=== PATIENT | male | born 1940 | race Caucasian/White ===

== ENCOUNTER → 2016-08-14 | Outpatient (CLI) | payer MEDICARE ==
[~2016-08-14] MED LIST: ALLO300T2 PO; ASPI1TAB69 PO; GLUC500T4 PO; LEVA500T PO; LOVA40TA PO; LYRI75CA PO; METO50TA PO; VENTAER INH; ZOFR4TAB3 SL
[2016-08-14 09:46] LABS: BLOOD GAS BASE EXCESS -1.5 mmol/L (-2-2); BLOOD GAS CARBOXYHEMOGLOBIN 1.3 % (0-4); BLOOD GAS HCO3 23 mmol/L (22-26); BLOOD GAS METHEMOGLOBIN 1.1 % (0-2); BLOOD GAS O2 HGB SATURATION 92 % (90-100); BLOOD GAS OXYGEN CONTENT 16.3 Vol % (12.0-20.0); BLOOD GAS PCO2 36 mmHg (38-42); BLOOD GAS PO2 73 mmHg (61-120); BLOOD GAS TOTAL HGB 12.6 G/DL (12.0-16.0); CRITICAL VALUE NO; DRAW SITE RT RADIAL; LITER FLOW 21 L/M; NUMBER OF ARTERIAL PUNCTURES 1; STAT NO; TEMP CORR TO 98.6; ULNAR PULSE PRESENT
--- NOTE | 2016-08-17 10:56 | RSPPFT ---
DATE OF PROCEDURE: 08/14/16 COMMENTS: Spirometry with FVC of 3.0 predicted 5.1, FEV1 of 2.5 predicted 3.3, FEV1/FVC ratio 83% predicted 65%. Lung volumes show a mild decrease with TLC at 5.9 predicted 8.1. DLCO is within the predicted range. IMPRESSION: On the basis of the above, patient has a mild restrictive lung defect.
== END ==
LOC: HRSP 08:54
PROVIDERS: ATTEND Internal Medicine Pulmonary Disease
DX: R05 Cough (principal)
CPT/HCPCS: 36600; 82805; 94060; 94620; 94726; 94729

== ENCOUNTER 2017-04-16 14:29 | Emergency (ER) | payer MEDICARE ==
[~2017-04-16] VITALS: Ht 193 cm; Wt 137.1 kg
[2017-04-16 14:32] VITALS: BP 121/89; PULSE 71; RESP 15; TEMP 98.1; O2SAT 93
[2017-04-16] MEDS ORDERED: LIDOCAINE HCL 1% 50 ML VIAL INFIL ONE (14:45)
[2017-04-16] MEDS ORDERED: TETANUS/DIPHTHERIA TOXOID ADULT 0.5 ML VIAL IM ONE (14:45)
[2017-04-16] MEDS ORDERED: ASPI81CH CHEW (14:54)
--- NOTE | 2017-04-16 15:11 | PD ---
HPI Chief Complaint: Fall Time Seen by Provider: 14:41 Travel History International Travel<30 days: No Contact w/Intl Traveler<30days: No Traveled to known affect area: No History of Present Illness HPI 76-year-old male that presents to the ED for evaluation of head injury. Patient fell onto concrete today. Patient was putting shutters when he lost his balance and fell backwards. Patient did not lose consciousness. Patient complains of no pain other than to the head that is 2 out of 10. He does have a laceration to the back of the head. Takes no blood thinners. No nausea or vomiting. No back pain or neck pain. No arm pain or leg pain. Patient states that his last tetanus was about 8 years ago. No fevers chills or sweats. Other medical issues. PFSH Past Medical History Hx Anticoagulant Therapy: No Arthritis: Yes Autoimmune Disease: No Cancer: No Cardiovascular Problems: Yes High Cholesterol: Yes Diminished Hearing: Yes ([place] BOTH EARS) Endocrine: Yes (10 OR 11 YEARS OLD) Gastrointestinal Disorders: No Genitourinary: No Hypertension: Yes Immune Disorder: No Implanted Vascular Access Dvce: No Neurologic: No Psychiatric: No Reproductive: No Respiratory: Yes (HX BRONCHITIS) Immunizations Current: Yes Pneumonia: Yes Thyroid Disease: Yes Tetanus Vaccination: Unknown Influenza Vaccination: No ?: Not Past Surgical History Abdominal Surgery: Yes (APENDIX REMOVAL AT 13 YEARS OLD) Other Surgery: Yes Social History Alcohol Use: Yes (2-3 BEER A WEEK) Tobacco Use: No (QUIT ) Substance Use: No Allergies-Medications (Allergen,Severity, Reaction): Coded Allergies: No Known Allergies (Verified , 04/16/17) Reported Meds & Prescriptions Reported Meds & Active Scripts Active Reported Aspirin 81 Mg Chew 81 Mg CHEW DAILY Metoprolol Tartrate 50 Mg Tab 50 Mg PO BID Lyrica (Pregabalin) 75 Mg Cap 75 Mg PO DAILY Glucosamine-Chondroitin 500-400 Mg Tab 1 Tab PO DAILY Lovastatin 40 Mg Tab 40 Mg PO DAILY Allopurinol 300 Mg Tab 300 Mg PO DAILY Review of Systems Except as stated in HPI: all other systems reviewed are Neg Physical Exam Narrative GENERAL: SKIN: Warm and dry. Patient has a superficial 5 cm laceration to the left temporal head. HEAD: Atraumatic. Normocephalic. EYES: Pupils equal and round. No scleral icterus. No injection or drainage. ENT: No nasal bleeding or discharge. Mucous membranes pink and moist. Tongue is midline. No uvula deviation. NECK: Trachea midline. No JVD. CARDIOVASCULAR: Regular rate and rhythm. RESPIRATORY: No accessory muscle use. Clear to auscultation. Breath sounds equal bilaterally. GASTROINTESTINAL: Abdomen soft, non-tender, nondistended. Hepatic and splenic margins not palpable. MUSCULOSKELETAL: Extremities without clubbing, cyanosis, or edema. No obvious deformities. Full range of motion of the upper and lower extremities bilaterally. 2+ pulses bilaterally. NEUROLOGICAL: Awake and alert. No obvious cranial nerve deficits. Motor grossly within normal limits. Five out of 5 muscle strength in the arms and legs. Normal speech. PSYCHIATRIC: Appropriate mood and affect; insight and judgment normal. Data Data Last Documented VS Vital Signs Date Time Temp Pulse Resp B/P (MAP) Pulse Ox O2 Delivery O2 Flow Rate FiO2 04/16/17 14:32 98.1 71 15 121/89 (100) [address] Brain W/O Iv Contrast(Rout) (04/16/17 ) Wound Care (04/16/17 14:38) Lidocaine 1% Inj (50 Ml) (Xylocaine 1% I (04/16/17 14:45) Tetanus/Diphtheria Tox Adult (Tetanus/Di (04/16/17 14:45) MDM Medical Decision Making Medical Screen Exam Complete: Yes Emergency Medical Condition: Yes Medical Record Reviewed: Yes Interpretation(s) CT negative Differential Diagnosis Laceration versus head injury versus closed head injury versus ICH Narrative Course 76-year-old male that presents to the ED for evaluation of head injury. Patient was properly examined and was found to have signs and symptoms consistent with appears to be a laceration and head injury. CT was ordered. CT was negative for any intracranial injury. I do recommend stapling. Patient agrees with this plan. Please refer to her procedure note. Patient was told to get tello removed in 7 days. Told to follow up with PCP. Given tetanus booster. See ED worsening symptoms. Procedures Procedure Narrative LACERATION LOCATION: Right temporal head LENGTH: 5 cm NUMBER OF STITCHES/TELLO: 10 tello REPAIR: The area of the laceration was prepped with Betadine and sterilely draped. The laceration was infiltrated with 1% Xylocaine. The wound was copiously irrigated and explored without evidence of foreign body, tendon injury or neurovascular injury. The wound was closed using sterile stapler. This was a 1 layer repair. A sterile dressing was applied. The patient was advised to keep the dressing clean and dry. Patient tolerated the procedure well. Diagnosis Primary Impression: Closed head injury Qualified Codes: S09.90XA - Unspecified injury of head, initial encounter Additional Impression: Laceration of head Qualified Codes: S01.411A - Laceration without foreign body of right cheek and temporomandibular area, initial encounter Patient Instructions: General Instructions Additional Instructions: Motrin or Tylenol for pain. See ED worsening symptoms. Get tello removed in 7 days. Follow with PCP. Med/Other Pt SpecificInfo: No Change to Meds, Wound Care Disposition: 01 DISCHARGE HOME Condition: Stable Harish Joyce Apr 16, 2017 15:11
--- NOTE | 2017-04-16 15:44 | RADRPT ---
EXAM DATE/TIME: 04/16/2017 14:59 [facility] COMPARISON: CT BRAIN W/O CONTRAST, July 04, 2016, 16:30. INDICATIONS : Trauma. Fall. Right posterior head laceration. RADIATION DOSE: 64.30 CTDIvol (mGy) MEDICAL HISTORY : Hypertension. Cardiovascular disease SURGICAL HISTORY : Appendectomy. ENCOUNTER: Initial ACUITY: 1 day PAIN SCALE: 2/10 LOCATION: Right cranial TECHNIQUE: Multiple contiguous axial images were obtained of the head. Using automated exposure control and adj ustment of the mA and/or kV according to patient size, radiation dose was kept as low as reasonably a chievable to obtain optimal diagnostic quality images. DICOM format image data is available electro nically for review and comparison. FINDINGS: There is no evidence for intracranial hemorrhage, mass effect, mass lesions, or edema. The visualize d bony structures appear intact. Slight degree of brain atrophy is seen. Slight periventricular whit e matter changes are seen nonspecific mostly consistent with chronic small vessel ischemic changes. There are no signs of acute infarction for technique. 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 CONCLUSION: Slight atrophic and small vessel ischemic changes without any evidence for acute hemorrhage or mass effect. Sveta Boss MD on April 16, 2017 at 15:40 Board Certified Radiologist. This report was verified electronically.
== END 2017-04-16 16:11 | disposition home or self-care (01) ==
LOC: PHEFT 14:29
DX: S09.90XA Unspecified injury of head, initial encounter (principal); S01.411A Laceration without foreign body of right cheek and temporomandibular area, initial encounter; W18.30XA Fall on same level, unspecified, initial encounter; Y93.E9 Activity, other interior property and clothing maintenance; Y92.009 Unspecified place in unspecified non-institutional (private) residence as the place of occurrence of the external cause; Z23 Encounter for immunization
CPT/HCPCS: 12002; 70450; 90471; 90714

== ENCOUNTER → 2017-08-24 | Outpatient (CLI) | payer MEDICARE ==
[~2017-08-24] MED LIST changes: +ASPI-516 CHEW; -ASPI1TAB69 PO; -LEVA500T PO; -VENTAER INH; -ZOFR4TAB3 SL
--- NOTE | 2017-08-26 09:35 | RSPPFT ---
DATE OF PROCEDURE: 08/24/17 COMMENTS: Spirometry shows FVC of 3.3 at 63% of predicted, FEV1 of 2.5 at 62%, FEV1/FVC ratio is normal. Flow is decreased at FEF 25, FEF 50, FEF 75 and FEF 25-75. There is no response after bronchodilator treatment. Flow volume loop indicates terminal airways obstruction. Lung volumes show Residual volume is normal. TLC is decreased. Diffusion capacity is normal. IMPRESSION: 1. Mild small airways obstructive lung disease. 2. No response after bronchodilator treatment. 3. Normal lung volumes. 4. Normal diffusion capacity.
== END ==
LOC: HRSP 08:49
PROVIDERS: ATTEND Specialist
DX: J44.9 Chronic obstructive pulmonary disease, unspecified (principal)
CPT/HCPCS: 36600; 82805; 94060; 94726; 94729

== ENCOUNTER 2018-04-25 00:59 | Observation (INO) ==
[2018-04-25 01:44] LABS: Baso # (Auto) 0.1 th/mm3 (0.0-0.2); Baso % (Auto) 1.1 % (0.0-2.0); Eos # (Auto) 0.2 th/mm3 (0.0-0.4); Eos % (Auto) 3.8 % (0.0-4.0); Hematocrit 41.3 % (39.0-51.0); Hemoglobin 13.6 gm/dL (13.0-17.0); Lymph # (Auto) 2.2 th/mm3 (1.0-4.8); Lymph % (Auto) 33.7 % (9.0-44.0); Mean Corpuscular Hemoglobin 29.9 pg (27.0-34.0); Mean Corpuscular Volume 90.4 fL (80.0-100.0); Mean Platelet Volume 7.4 fL (7.0-11.0); Mono # (Auto) 0.4 th/mm3 (0.0-0.9); Mono % (Auto) 6.1 % (0.0-8.0); Neut # (Auto) 3.6 th/mm3 (1.8-7.7); Neut % (Auto) 55.3 % (16.0-70.0); Platelet Count 238 th/mm3 (150-450); Red Blood Count 4.57 mil/mm3 (4.50-5.90); Red Cell Distribution Width 14.4 % (11.6-17.2); White Blood Count 6.5 th/mm3 (4.0-11.0)
--- NOTE | 2018-04-25 01:50 | XR ---
EXAM DATE: 04/25/2018 1:46 AM EDT AGE/SEX: 77 years / Male INDICATIONS: Shortness of breath. CLINICAL DATA: This is the patient's initial encounter. Patient reports that signs and symptoms have been present for 1 day and indicates a pain score of 0/10. MEDICAL/SURGICAL HISTORY: None. None. COMPARISON: [facility], CHEST SINGLE AP, 07/16/2016. . FINDINGS: A single AP view of the chest demonstrates the lungs to be symmetrically aerated without evidence of mass, infiltrate or effusion. The cardiomediastinal contours are unremarkable. Osseous structures a re intact. CONCLUSION: Stable chest appearance with no definite acute disease. Electronically signed by: Edison Mccormick MD 04/25/2018 1:48 AM EDT
[2018-04-25 02:01] LABS: Alanine Aminotransferase 33 U/L (12-78); Albumin 3.7 g/dL (3.4-5.0); Anion Gap 10 meq/L (5-15); Aspartate Aminotransferase 27 U/L (15-37); Blood Urea Nitrogen 19 mg/dL (7-18); Calcium 9.1 mg/dL (8.5-10.1); Chloride 104 meq/L (98-107); Glomerular Filtration Rate 68 mL/min (>89); Glucose,Random 111 mg/dL (74-106); Lipase 98 U/L (73-393); Magnesium 2.3 mg/dL (1.5-2.5); Sodium 143 meq/L (136-145)
[2018-04-25 02:06] LABS: Alkaline Phosphatase 117 U/L (45-117); Creatine Kinase 149 U/L (39-308); Total Protein 7.8 g/dL (6.4-8.2)
[2018-04-25 02:10] LABS: Activated Partial Thrombo Time 26.2 sec (24.3-30.1); Prothrombin Time 10.6 sec (9.8-11.6)
[2018-04-25 02:18] LABS: Creatine Kinase MB 1.6 ng/mL (0.5-3.6)
[2018-04-25 02:34] LABS: D-Dimer 0.67 mg/L FEU (0.00-0.50)
[2018-04-25] MEDS ORDERED: Sodium Chlor 0.9% Inj 500 ML IV.SIG ONE (02:52)
--- NOTE | 2018-04-25 02:57 | ED ---
HPI General Chief complaint: Respiratory Symptoms Stated complaint: Sob Time Seen by Provider: 04/25/18 01:22 Source: patient History of Present Illness HPI narrative: The patient is a 77 year old male who presents to the [facility] emergency department with a history of developing chest pain and shortness of breath when trying to lie down to go to sleep at approximately 11 PM tonight. The patient reports that he is never had symptoms like this previously. He denies any prior history of coronary artery disease, DVT, or PE. The patient reports that he does have a history of hypertension. The patient reports that the chest pain is in the center of his chest, upper aspect and goes into his neck. He denies having any recent cough or congestion. He denies having any known fevers or chills. He denies having any lower extremity edema, calf pain, or erythema. On review of systems otherwise, the patient denies having any diaphoresis, abdominal pain, nausea or vomiting, diarrhea, urinary symptoms, or neurologic symptoms. Related Data Home Medications Medication Instructions Recorded Confirmed acyclovir 400 mg PO Q4H 04/25/18 04/25/18 allopurinol 300 mg PO DAILY 04/25/18 04/25/18 aspirin [Aspirin Low Dose] 81 mg PO DAILY 04/25/18 04/25/18 lamotrigine 50 mg PO BID 04/25/18 04/25/18 lovastatin 40 mg PO BID 04/25/18 04/25/18 metoprolol tartrate 25 mg PO BID 04/25/18 04/25/18 pregabalin [Lyrica] 75 mg PO BID 04/25/18 04/25/18 tamsulosin 0.4 mg PO DAILY 04/25/18 04/25/18 tramadol 50 mg PO BID PRN 04/25/18 04/25/18 Allergies Allergy/AdvReac Type Severity Reaction Status Date / Time No Known Allergies Allergy Verified 04/25/18 01:08 Review of Systems ROS: all other systems reviewed are negative [facility] Medical History Medical History Neuropathy (Acute) Prostate disorder (Acute) Hypertension (Acute) Gout (Acute) Surgical History Surgical History H/O knee surgery (Acute) History of appendectomy (Acute) History of tonsillectomy (Acute) Social History Social History Substance History: No History of Abuse Second Hand Smoke Exposure: No Smoking Status: Former smoker Tobacco Type: Pipe and Cigars How Often Do You Have a Drink Containing Alcohol: 2 to 3 times a week Recent Travel in [facility] within the Last 8 Weeks: No Recent Out of Country Travel within the Last 8 Weeks: No Immunization History Tetanus Immunization: >5 Years Hx Influenza Vaccine This Season: No Exam Const General: cooperative, no acute distress and well developed Nutritional Appearance: well nourished Orientation: alert, awake and oriented x3 HENMT Head: normocephalic and atraumatic Nose: no nasal discharge and no epistaxis Mouth: moist mucous membranes Throat: posterior oropharynx normal and uvula midline Eyes Sclera: normal sclerae Pupils: PERRL Neck Neck: no meningeal signs, trachea midline and no JVD Resp Effort & Inspection: no use of accessory muscles Auscultation: clear to auscultation bilaterally Cardio Rate: bradycardic (Sinus bradycardia in the 50s, no pulse deficits to the extremities on simultaneous auscultation and palpation of his radial artery) Rhythm: regular rhythm Heart Sounds: no gallops, no murmurs and no rubs GI Inspection: non-distended Palpation: soft, no hepatosplenomegaly and nontender Auscultation: normal bowel sounds Back/Spine/Pelvis Back: no CVA tenderness Skin General: dry skin (warm) Neuro General: alert, awake, oriented x3 and other (Grossly nonfocal.) Speech: speech normal Motor: no movement abnormalities noted Extrem General: normal to inspection (No calf tenderness on palpation. 2+ pulses in all 4 extremities.), no clubbing, no cyanosis and edema (Trace pedal edema.) Laterality: bilaterally Psych Mood: congruent mood Affect: normal affect Judgment: judgment good Course Initial Documented Vital Signs Temperature 97.6 F 04/25/18 01:01 Pulse Rate 64 04/25/18 01:01 Respiratory Rate 27 H 04/25/18 01:01 Blood Pressure 160/77 H 04/25/18 01:01 Pulse Oximetry 94 L 04/25/18 01:01 Last Documented Vital Signs Temperature 98.1 F 04/25/18 08:00 Pulse Rate 69 04/25/18 08:00 Respiratory Rate 20 04/25/18 08:00 Blood Pressure 118/65 04/25/18 08:00 Pulse Oximetry 98 04/25/18 08:47 Medical Decision Making MDM Narrative Medical decision making narrative: During the course of the patient's emergency department visit, the patient's history, examination, and differential diagnosis were reviewed with the patient. The patient was placed on a forex trader with oximetry and frequent blood pressure monitoring. The patient had IV access obtained and blood work sent for analysis. Diagnostic evaluation was started regarding the patient's chest pain with shortness of breath. The patient was initially provided aspirin 324 mg p.o. 1, nitroglycerin 1/2 inch the chest wall, normal saline at 500 mL bolus 1. Diagnostic testing is remarkable for a CBC that is within normal limits, PT PTT within normal limits, d-dimer elevated at 0.67, therefore CTA to rule out PE was ordered. Chemistry was remarkable for a BUN of 19, GFR 68, glucose 111, initial set of cardiac enzymes are within normal limits. BNP is 24 ruling out congestive heart failure. The patient's chest x-ray showed no acute abnormality , CTA to rule out PE was read as negative for pulmonary embolism. The patient will be admitted to the chest pain center for rule out serial cardiac enzyme protocol followed by consideration of stress testing. The patient's results were discussed with the patient, including the plan of care. I explained that further testing and/ or monitoring is indicated based on the patient's history, examination, and/ or laboratory findings. Therefore, I recommended admission for additional evaluation. The patient expressed understanding and was agreeable with this plan. The patient was admitted to the hospital in stable condition and sent to a bed under the care of the [facility]. Medical Screen Exam Complete: Yes Emergency Medical Condition: Yes Differential Diagnosis Differential Diagnosis: Acute coronary syndrome, versus pulmonary embolism, versus congestive heart failure, versus pneumothorax Medical Records Medical records reviewed: Yes I reviewed the patient's medical records. Lab Data Lab results reviewed: Yes I reviewed the patient's lab results. Result diagrams: 04/25/18 01:36 04/25/18 01:36 Lab Results 04/25/18 04/25/18 04/25/18 Range/Units 01:36 01:36 01:36 WBC 6.5 (4.0-11.0) th/mm3 RBC 4.57 (4.50-5.90) mil/mm3 Hgb 13.6 (13.0-17.0) gm/dL Hct 41.3 (39.0-51.0) % MCV 90.4 (80.0-100.0) fL MCH 29.9 (27.0-34.0) pg MCHC 33.0 (32.0-36.0) % RDW 14.4 (11.6-17.2) % Plt Count 238 (150-450) th/mm3 MPV 7.4 (7.0-11.0) fL Neut % (Auto) 55.3 (16.0-70.0) % Lymph % (Auto) 33.7 (9.0-44.0) % Clark % (Auto) 6.1 (0.0-8.0) % Eos % (Auto) 3.8 (0.0-4.0) % Baso % (Auto) 1.1 (0.0-2.0) % Neut # (Auto) 3.6 (1.8-7.7) th/mm3 Lymph # (Auto) 2.2 (1.0-4.8) th/mm3 Clark # (Auto) 0.4 (0.0-0.9) th/mm3 Eos # (Auto) 0.2 (0.0-0.4) th/mm3 Baso # (Auto) 0.1 (0.0-0.2) th/mm3 WBC Differential . Differential Comment Auto diff final PT (9.8-11.6) sec INR Ratio APTT (24.3-30.1) sec D-Dimer Quant (PE/DVT) (0.00-0.50) mg/L FEU Sodium 143 (136-145) meq/L Potassium 4.0 (3.5-5.1) meq/L Chloride 104 (98-107) meq/L Carbon Dioxide 29.0 (21.0-32.0) meq/L Anion Gap 10 (5-15) meq/L BUN 19 H (7-18) mg/dL Creatinine 1.06 (0.60-1.30) mg/dL Estimated GFR 68 L (>89) mL/min Random Glucose 111 H (74-106) mg/dL Calcium 9.1 (8.5-10.1) mg/dL Magnesium 2.3 (1.5-2.5) mg/dL Total Bilirubin 0.2 (0.2-1.0) mg/dL AST 27 (15-37) U/L ALT 33 (12-78) U/L Alkaline Phosphatase 117 (45-117) U/L Total Creatine Kinase 149 (39-308) U/L CK-MB (CK-2) 1.6 (0.5-3.6) ng/mL Troponin I Less than 0.02 L (0.02-0.05) ng/mL B-Natriuretic Peptide 24 (0-100) pg/mL Total Protein 7.8 (6.4-8.2) g/dL Albumin 3.7 (3.4-5.0) g/dL Lipase 98 (73-393) U/L 04/25/18 04/25/18 Range/Units 01:36 06:05 WBC (4.0-11.0) th/mm3 RBC (4.50-5.90) mil/mm3 Hgb (13.0-17.0) gm/dL Hct (39.0-51.0) % MCV (80.0-100.0) fL MCH (27.0-34.0) pg MCHC (32.0-36.0) % RDW (11.6-17.2) % Plt Count (150-450) th/mm3 MPV (7.0-11.0) fL Neut % (Auto) (16.0-70.0) % Lymph % (Auto) (9.0-44.0) % Clark % (Auto) (0.0-8.0) % Eos % (Auto) (0.0-4.0) % Baso % (Auto) (0.0-2.0) % Neut # (Auto) (1.8-7.7) th/mm3 Lymph # (Auto) (1.0-4.8) th/mm3 Clark # (Auto) (0.0-0.9) th/mm3 Eos # (Auto) (0.0-0.4) th/mm3 Baso # (Auto) (0.0-0.2) th/mm3 WBC Differential Differential Comment PT 10.6 (9.8-11.6) sec INR 1.0 Ratio APTT 26.2 (24.3-30.1) sec D-Dimer Quant (PE/DVT) 0.67 H (0.00-0.50) mg/L FEU Sodium (136-145) meq/L Potassium (3.5-5.1) meq/L Chloride (98-107) meq/L Carbon Dioxide (21.0-32.0) meq/L Anion Gap (5-15) meq/L BUN (7-18) mg/dL Creatinine (0.60-1.30) mg/dL Estimated GFR (>89) mL/min Random Glucose (74-106) mg/dL Calcium (8.5-10.1) mg/dL Magnesium (1.5-2.5) mg/dL Total Bilirubin (0.2-1.0) mg/dL AST (15-37) U/L ALT (12-78) U/L Alkaline Phosphatase (45-117) U/L Total Creatine Kinase 125 (39-308) U/L CK-MB (CK-2) (0.5-3.6) ng/mL Troponin I Less than 0.02 L (0.02-0.05) ng/mL B-Natriuretic Peptide (0-100) pg/mL Total Protein (6.4-8.2) g/dL Albumin (3.4-5.0) g/dL Lipase (73-393) U/L Imaging Data Radiologist's impression: Chest X-Ray 04/25/18 01:30 CONCLUSION: Stable chest appearance with no definite acute disease. Chest CTA 04/25/18 02:53 CONCLUSION: This study is negative for pulmonary embolism. Myocardial Perfusion Scan Nuc Med 04/25/18 08:09 CONCLUSION: 1. No infarct, ischemia or wall motion abnormality. ECG Data Attestation: I personally reviewed and interpreted this ECG as follows: Interpretation: The patient had an EKG done on arrival that shows a sinus bradycardia heart rate of 56, QRS duration 143 ms, QTC [address] segment elevation. T waves are inverted in V1. A right bundle branch block is noted. Discharge Plan Discharge Disposition Patient Disposition: 01 Discharge Home Discharge Condition Condition: Stable Discharge Order Discharge Orders: Discharge Order (Routine); Ordered 04/25/18 Ordered By: Parth Johnson Physicians Team ED Provider: Germaine Waters Primary Care Provider: David Santos Attending Provider: Sheldon Zafar ED Status: Left Department Discharge Information Discharge Date/Time: 04/25/18 08:09
--- NOTE | 2018-04-25 05:05 | CT ---
EXAM DATE: 04/25/2018 3:54 AM EDT AGE/SEX: 77 years / Male INDICATIONS: Shortness of breath, elevated d dimer. CLINICAL DATA: This is the patient's initial encounter. Patient reports that signs and symptoms have been present for 1 day and indicates a pain score of 0/10. MEDICAL/SURGICAL HISTORY: Hypertension. None. RADIATION DOSE: 23.34 CTDI (mGy) COMPARISON: No prior exams available for comparison. TECHNIQUE: Volumetric scanning was performed using a multi-row detector CT scanner during bolus infu magaly of 75 ml Omnipaque 350 (iohexol) nonionic water-soluble contrast as a single exam dose. The gigi a was post processed with a variety of visualization algorithms including full volume maximum intensi ty projection and sliding thin slab reformation. Using automated exposure control and adjustment of the mA and/or kV according to patient size, radiation dose was kept as low as reasonably achievable t o obtain optimal diagnostic quality images. DICOM format image data is available electronically for review and comparison. FINDINGS: Pulmonary Arteries: No filling defects are seen in the pulmonary arteries out to the subsegmental ve ssels. The left and right pulmonary arteries are normal in diameter. Lung: Mild vascular congestion and posterior basilar atelectasis or infiltrate. Effusion: None. Mediastinum: No evidence of mediastinal or hilar adenopathy. Other: The axilla is unremarkable. CONCLUSION: This study is negative for pulmonary embolism. Electronically signed by: Edison Mccormick MD 04/25/2018 5:03 AM EDT
[2018-04-25] MEDS ORDERED: Acetaminophen 500 MG Tablet PO PRN (05:22)
[2018-04-25 06:49] LABS: Creatine Kinase 125 U/L (39-308)
[2018-04-25 08:33] VITALS: BP 118/65; PULSE 69; RESP 20; TEMP 98.1
[2018-04-25 08:50] VITALS: O2SAT 98
[2018-04-25] MEDS ORDERED: Metoprolol Tartrate 25 MG Tablet PO SCH (09:00)
[2018-04-25] MEDS ORDERED: Pregabalin 75 MG Capsule PO SCH (09:00)
--- NOTE | 2018-04-25 09:18 | P.HPCA ---
History of Present Illness Primary Care Physician: David Santos MD Chief Complaint: Chest pain History of Present Illness: This is a 77-year-old male with history of hypertension, sleep apnea, and hyperlipidemia that presents to ED with complaint of chest pain. Patient states he woke up about midnight secondary to his CPAP mask leaking around his mouth. Within 30 minutes afterwards he developed a tightness in the center of his chest. Found to be worse with deep inspiration. Discomfort radiated up into his neck. The discomfort is still there. Denies associated shortness of breath, nausea, or diaphoresis. States he has had a cardiac workup in the past and that was okay. Does not follow a electrical contacts adjuster. Denies recent illness. Denies fevers or chills. He has not been coughing. Past medical history of hypertension, hyperlipidemia, and sleep apnea. Denies diabetes and known CAD. He is a non-smoker. Denies family history of CAD. - Diagnosis (1) Chest pain (2) Hyperlipidemia (3) Sleep apnea (4) Hypertension Review of Systems General: Patient denies fevers, chills, and recent travel. HEENT: Patient denies headache, sore throat, difficulty swallowing. Cardiovascular: Has the chest discomfort as mentioned above. Denies sensation of heart beating rapidly or irregularly. No syncope. Denies diaphoresis. Respiratory: Planes of discomfort worsened with deep inspiration. Denies shortness. Denies coughing wheezing or hemoptysis. GI: Patient denies nausea, vomiting, diarrhea, abdominal pain, bloody stools. Musculoskeletal: Patient denies joint pain or edema. Denies calf pain or edema. Neurovascular: Patient denies numbness, tingling, weakness in extremities. Denies headache. Endocrine: Denies polyuria and polydipsia. Hematologic: Denies easy bruising. Skin: Denies rash or itching. PMFSH - History History Provided By: Patient - Medical History Medical History: Medical History (Last Updated 04/25/18 @ 01:07 by Beverly Bolton) Neuropathy (Acute) Prostate disorder (Acute) Hypertension (Acute) Gout (Acute) - Surgical History Surgical History: Surgical History (Last Updated 04/25/18 @ 06:31 by Germaine Waters MD) H/O knee surgery History of appendectomy History of tonsillectomy - Tobacco History Second Hand Smoke Exposure: No Tobacco Use In Past 30 Days: No Smoking Status: Former smoker Tobacco Type: Pipe, Cigars - Alcohol History How Often Do You Have a Drink Containing Alcohol: 2 to 3 times a week - Substance Use History Substance History: No History of Abuse - Travel History Recent Travel in the [place] Within the Last 8 Weeks: No Recent Travel Out of the Country Within the Last 8 Weeks: No - Immunization History Tetanus Immunization: >5 Years Hx Influenza Vaccine This Season: No Medications and Allergies Active Medications: Active Medications Acetaminophen (Tylenol) 500 mg PO Q4H PRN PRN Reason: HEADACHE Hydrocodone Bitart/Acetaminophen ([place] 7.5/325) 1 tab PO Q6H PRN PRN Reason: pain scale 6-10 Aspirin (Aspirin) 325 mg PO DAILY LEÓN Clonidine HCl (Catapres) 0.1 mg PO Q6H PRN PRN Reason: SBP >165 OR DBP > 110 Lamotrigine (Lamictal) 50 mg PO BID LE[place]N Metoprolol Tartrate (Lopressor) 25 mg PO BID [place]N Pravastatin Sodium (Pravachol) 40 mg PO BID [place] Pregabalin (Lyrica) 75 mg PO BID [place] Sodium Chloride (Ns Flush) 2 ml IV.FLUSH BID LE[place]N Sodium Chloride (Ns Flush) 2 ml IV.FLUSH PRN PRN PRN Reason: FLUSH AFTER USING IV ACCESS Allergies Allergy/AdvReac Type Severity Reaction Status Date / Time No Known Allergies Allergy Verified 04/25/18 01:08 Home Medications Medication Instructions Recorded Confirmed Type acyclovir 400 mg PO Q4H 04/25/18 04/25/18 History allopurinol 300 mg PO DAILY 04/25/18 04/25/18 History aspirin [Aspirin Low Dose] 81 mg PO DAILY 04/25/18 04/25/18 History lamotrigine 50 mg PO BID 04/25/18 04/25/18 History lovastatin 40 mg PO BID 04/25/18 04/25/18 History metoprolol tartrate 25 mg PO BID 04/25/18 04/25/18 History pregabalin [Lyrica] 75 mg PO BID 04/25/18 04/25/18 History tamsulosin 0.4 mg PO DAILY 04/25/18 04/25/18 History tramadol 50 mg PO BID PRN 04/25/18 04/25/18 History Exam Vital signs: Vital Signs 04/25/18 01:01 04/25/18 01:05 04/25/18 02:57 Temperature 97.6 F 98.2 F Pulse Rate 64 55 L Respiratory Rate 27 H 18 Blood Pressure 160/77 H 132/64 Pulse Oximetry 94 L 94 L 96 04/25/18 05:05 04/25/18 05:48 04/25/18 06:15 Temperature Pulse Rate 60 70 Respiratory Rate 20 20 20 Blood Pressure 106/72 106/72 Pulse Oximetry 04/25/18 06:16 04/25/18 07:30 04/25/18 08:00 Temperature 98.1 F Pulse Rate 88 69 Respiratory Rate 20 18 20 Blood Pressure 106/76 118/65 Pulse Oximetry 87 L 04/25/18 08:47 Temperature Pulse Rate Respiratory Rate Blood Pressure Pulse Oximetry 98 Intake & Output 04/24/18 04/25/18 04/25/18 18:59 06:59 18:59 Intake Total 500 / 500 Balance 500 / 500 Weight 133.356 kg Intake: IV 500 / 500 NS Inj 500 ML @ Wide Open IV. 500 / 500 SIG BOLUS ONE Rx#:[id number] Other: Date of Last Bowel Movement 04/24/18 Narrative: GENERAL: This is a well-nourished, well-developed patient, in no apparent distress. Patient speaks in clear complete sentences. Patient is pleasant. HEENT: Head is atraumatic and normocephalic. Neck is supple without lymphadenopathy and trachea is midline. No JVD or carotid bruits. CARDIOVASCULAR: Regular rate and rhythm without murmurs, gallops, or rubs. RESPIRATORY: Clear to auscultation. Breath sounds equal bilaterally. No wheezes , rales, or rhonchi. Chest wall is nontender. No use of accessory muscles. GASTROINTESTINAL: Abdomen is nontender, nondistended. Abdomen soft. No obvious pulsatile mass or bruit. No CVA tenderness. Strong femoral pulses bilaterally. Normal bowel sounds in all quadrants. MUSCULOSKELETAL: Patient is moving upper and lower extremities freely. No calf tenderness or edema, no Homans sign. Strong pulses in upper and lower extremities. NEUROLOGICAL: Patient is alert and oriented. Cranial nerves 2-12 are grossly intact. No focal deficits and speech is clear. SKIN: No rash and turgor is normal. Results 04/25/18 01:36 04/25/18 01:36 Cardiac Enzymes 04/25/18 04/25/18 04/25/18 Range/Units 01:36 01:36 06:05 AST 27 (15-37) U/L CK-MB (CK-2) 1.6 (0.5-3.6) ng/mL Troponin I Less than 0.02 L Less than 0.02 L (0.02-0.05) ng/mL B-Natriuretic Peptide 24 (0-100) pg/mL Coagulation 04/25/18 04/25/18 Range/Units 01:36 01:36 PT 10.6 (9.8-11.6) sec APTT 26.2 (24.3-30.1) sec B-Natriuretic Peptide 24 (0-100) pg/mL CBC 04/25/18 Range/Units 01:36 WBC 6.5 (4.0-11.0) th/mm3 RBC 4.57 (4.50-5.90) mil/mm3 Hgb 13.6 (13.0-17.0) gm/dL Hct 41.3 (39.0-51.0) % Plt Count 238 (150-450) th/mm3 Neut # (Auto) 3.6 (1.8-7.7) th/mm3 Lymph # (Auto) 2.2 (1.0-4.8) th/mm3 [place] # (Auto) 0.4 (0.0-0.9) th/mm3 Eos # (Auto) 0.2 (0.0-0.4) th/mm3 Baso # (Auto) 0.1 (0.0-0.2) th/mm3 Comprehensive Metabolic Panel 04/25/18 Range/Units 01:36 Sodium 143 (136-145) meq/L Potassium 4.0 (3.5-5.1) meq/L Chloride 104 (98-107) meq/L Carbon Dioxide 29.0 (21.0-32.0) meq/L BUN 19 H (7-18) mg/dL Creatinine 1.06 (0.60-1.30) mg/dL Calcium 9.1 (8.5-10.1) mg/dL AST 27 (15-37) U/L ALT 33 (12-78) U/L Alkaline Phosphatase 117 (45-117) U/L Total Protein 7.8 (6.4-8.2) g/dL Albumin 3.7 (3.4-5.0) g/dL Intake and Output 04/24/18 04/25/18 04/25/18 22:59 06:59 14:59 Intake Total 500 / 500 Balance 500 / 500 Intake: IV 500 / 500 NS Inj 500 ML @ Wide Open IV. 500 / 500 SIG BOLUS ONE Rx#:[id number] Other: Date of Last Bowel Movement 04/24/18 Weight 133.356 kg EKG interpretations - EKG EKG shows: bradycardia (EKG is sinus bradycardia with first-degree AV block.) Caprini VTE Risk Assessment Caprini VTE Risk Assessment: Moderate/High Risk (score >= 2) Caprini Risk Assessment Model: Point Value = 1 Point Value = 2 Point Value = 3 Point Value = 5 Age 41-60 Minor surgery BMI > 25 kg/m2 Swollen legs Varicose veins or History of unexplained or recurrent spontaneous Oral contraceptives or hormone replacement Sepsis (< 1 month) Serious lung disease, including pneumonia (< 1 month) Abnormal pulmonary function Acute myocardial infarction Congestive heart failure (< 1 month) History of inflammatory bowel disease Medical patient at bed rest Age 61-74 Arthroscopic surgery Major open surgery (> 45 min) Laparoscopic surgery (> 45 min) Malignancy Confined to bed (> 72 hours) Immobilizing plaster cast Central venous access Age >= 75 History of VTE Family history of VTE Factor V Leiden Prothrombin [id number] Lupus anticoagulant Anticardiolipin antibodies Elevated serum homocysteine Heparin-induced thrombocytopenia Other congenital or acquired thrombophilia Stroke (< 1 month) Elective arthroplasty Hip, pelvis, or leg fracture Acute spinal cord injury (< 1 month) Prophylaxis Regimen: Total Risk Factor Score Risk Level Prophylaxis Regimen 0-1 Low Early ambulation 2 Moderate Order ONE of the following: *Sequential Compression Device (SCD) *Heparin 5000 units SQ BID 3-4 Higher Order ONE of the following medications: *Heparin 5000 units SQ TID *Enoxaparin/Lovenox 40 mg SQ daily (WT < 150 kg, CrCl > 30 mL/min) *Enoxaparin/Lovenox 30 mg SQ daily (WT < 150 kg, CrCl > 10-29 mL/min) *Enoxaparin/Lovenox 30 mg SQ BID (WT < 150 kg, CrCl > 30 mL/min) AND/OR *Sequential Compression Device (SCD) 5 or more Highest Order ONE of the following medications: *Heparin 5000 units SQ TID (Preferred with Epidurals) *Enoxaparin/Lovenox 40 mg SQ daily (WT < 150 kg, CrCl > 30 mL/min) *Enoxaparin/Lovenox 30 mg SQ daily (WT < 150 kg, CrCl > 10-29 mL/min) *Enoxaparin/Lovenox 30 mg SQ BID (WT < 150 kg, CrCl > 30 mL/min) AND *Sequential Compression Device (SCD) Assessment and Plan - Assessment (1) Chest pain Code(s): R07.9 - Chest pain, unspecified Status: Acute (2) Hyperlipidemia Code(s): E78.5 - Hyperlipidemia, unspecified Status: Acute (3) Sleep apnea Code(s): G47.30 - Sleep apnea, unspecified Status: Acute (4) Hypertension Code(s): I10 - Essential (primary) hypertension Status: Acute - Plan * Chest pain: Patient had serial cardiac enzymes and EKGs for ruling out purposes. He was seen by Dr. Vish Kim of cardiology in the chest pain center. He will undergo a Lexiscan. He would be discharged home if stress test is nonischemic with instructions to follow-up with PCP. Return to ED for interval issues. * Hypertension: Continue medication. * Hyperlipidemia: Continue medication. * Sleep apnea: Discussed the fit of the mask with your provider to have an appropriate fitting mask. Patient stable at this time. He is agreeable to this plan. H&P: Quality - VTE Deep Vein Thrombosis/Pulmonary Embolism Present on Admission: No
[2018-04-25] MEDS ORDERED: lamoTRIgine 25 MG TABLET PO SCH (09:30)
[2018-04-25] MEDS ORDERED: Regadenoson Inj 0.4 MG/5 ML Syringe IV.PUSH ONE (10:38)
--- NOTE | 2018-04-25 12:59 | NM ---
EXAM DATE: 04/25/2018 12:47 PM EDT AGE/SEX: 77 years / Male INDICATIONS:Angina. . Chest pain. CLINICAL DATA: This is the patient's initial encounter. Patient reports that signs and symptoms have been present for 1 day and indicates a pain score of 4/10. MEDICAL/SURGICAL HISTORY: Hypertension. Appendectomy. Tonsillectomy. COMPARISON: No prior exams available for comparison. DOSE: 11.0 mCi Tc 99m Myoview at rest 35.0 mCi [id number] at stress 0.4 mg Lexiscan STRESS SYMPTOMS: Chest pain and dyspnea. EJECTION FRACTION: 58 % TECHNIQUE: The patient underwent pharmacologic stress with infusion of prescribed dose. Continuous ECG tracing was monitored during stress. Gated SPECT imaging was performed after stress and conventi onal SPECT imaging was performed at rest. The examination was performed on a SPECT/CT scanner, both attenuation and non-corrected datasets were reviewed. FINDINGS: The gated cine loop images demonstrate no focal wall motion abnormality. Left ventricular ejection fr action is calculated at 58%. The cardiac SPECT stress and rest images demonstrate no fixed or reversible defects to suggest infarc t or ischemia. RISK CATEGORY: Low (<1% Annual Motality Rate) CONCLUSION: 1. No infarct, ischemia or wall motion abnormality. Electronically signed by: Juan Bejarano MD 04/25/2018 12:57 PM EDT
[2018-04-26] MEDS ORDERED: Aspirin 325 MG Tablet PO SCH (09:00)
--- NOTE | 2018-04-26 16:54 | ECG ---
Date Performed: 04/25/2018 Time Performed: 01:16:13 PTAGE: 77 years EKG: SINUS BRADYCARDIA WITH FIRST DEGREE AV BLOCK MARKED LEFT AXIS DEVIATION RIGHT BUNDLE BRANCH BLOCK ABNORMAL ECG Since PREVIOUS TRACING , no significant change noted PREVIOUS TRACIN07/16/2016 09.37 DOCTOR: Deandra Husain Interpretating Date/Time 04/26/2018 16:53:12
--- NOTE | 2018-04-26 16:54 | TR ---
Date Performed: 04/25/2018 Time Performed: 10:34:47 DOCTOR: Deandra Husain DRUG LIST: CLINICAL HISTORY: REASON FOR TEST: REASON FOR ENDING: OBSERVATION: CONCLUSION: Lexiscan stress test was performed under standard four minute protocol. Radionuclid e was injected one minute prior to ending the test. No electrocardiographic abormalities were present to suggest ischemia. Nuclear imaging and interpretation are pending. COMMENTS: No electrocardiographic abormalities were present to suggest ischemia. Nuclear imagin g and interpretation are pending.
== END 2018-04-25 14:41 | disposition home or self-care (01) ==
LOC: NEDA 00:59 → NEPE 00:59 → NEPFCDU 07:13

== ENCOUNTER 2018-05-09 14:15 | Inpatient (IN) ==
[2018-05-09] MEDS ORDERED: Vancomycin Inj 1 GM/200 ML PIGGYBACK IV.SIG ONE (15:20)
[2018-05-09] MEDS ORDERED: Piperacil/Tazo 3.375 GM Premix 50 ML IV.SIG ONE (15:20)
[2018-05-09] MEDS ORDERED: Vancomycin Inj 1,000 MG in Sodium Chlor 0.9% Inj 250 ML IV.SIG ONE ×2 (15:30→20:00)
[2018-05-09 15:48] LABS: Baso # (Auto) 0.1 th/mm3 (0.0-0.2); Baso % (Auto) 0.9 % (0.0-2.0); Eos # (Auto) 0.2 th/mm3 (0.0-0.4); Eos % (Auto) 2.6 % (0.0-4.0); Hematocrit 37.7 % (39.0-51.0); Hemoglobin 12.5 gm/dL (13.0-17.0); Lymph # (Auto) 1.5 th/mm3 (1.0-4.8); Lymph % (Auto) 20.2 % (9.0-44.0); Mean Corpuscular HGB Conc 33.1 % (32.0-36.0); Mean Corpuscular Hemoglobin 29.6 pg (27.0-34.0); Mean Corpuscular Volume 89.5 fL (80.0-100.0); Mean Platelet Volume 6.8 fL (7.0-11.0); Mono # (Auto) 0.5 th/mm3 (0.0-0.9); Mono % (Auto) 6.3 % (0.0-8.0); Neut # (Auto) 5.1 th/mm3 (1.8-7.7); Platelet Count 302 th/mm3 (150-450); Red Blood Count 4.21 mil/mm3 (4.50-5.90); Red Cell Distribution Width 14.2 % (11.6-17.2); White Blood Count 7.3 th/mm3 (4.0-11.0)
[2018-05-09 15:59] LABS: Activated Partial Thrombo Time 26.3 sec (24.3-30.1); INR 1.1 Ratio; Prothrombin Time 11.3 sec (9.8-11.6)
[2018-05-09 16:00] LABS: Alanine Aminotransferase 25 U/L (12-78); Albumin 3.3 g/dL (3.4-5.0); Anion Gap 8 meq/L (5-15); Aspartate Aminotransferase 23 U/L (15-37); Blood Urea Nitrogen 17 mg/dL (7-18); Carbon Dioxide 28.2 meq/L (21.0-32.0); Chloride 107 meq/L (98-107); Glomerular Filtration Rate 60 mL/min (>89); Glucose,Random 99 mg/dL (74-106); Potassium 4.1 meq/L (3.5-5.1); Sodium 143 meq/L (136-145)
--- NOTE | 2018-05-09 16:01 | ED ---
HPI General Chief complaint: Recheck/Abnormal Lab/Rx Stated complaint: doctor sent Time Seen by Provider: 05/09/18 15:07 Source: patient Mode of arrival: ambulatory Limitations: no limitations History of Present Illness HPI narrative: Patient is a 77-year-old male that presents for the evaluation of chronic infection of the second toe of the right foot. The patient was seen earlier today by his product applications scientist who sent him to the ED for further evaluation because they are concerned that the patient might have osteomyelitis of the second toe of the right foot. The patient states that the infection of the foot has been going on for months and he has a hard time describing an exact timeline. The patient states that he thinks that the infection started because his toes rub together. The patient states that he has a history of bone changes in his feet and loss of sensation in both feet that he believes started 3-5 years ago. The patient denies pain in the feet due to his loss of sensation. Upon review of symptoms the patient denies any other symptoms except for swelling and infection of the second toe of the right foot. Related Data Home Medications Medication Instructions Recorded Confirmed acyclovir 400 mg PO Q4H 04/25/18 05/09/18 allopurinol 300 mg PO DAILY 04/25/18 05/09/18 aspirin [Aspirin Low Dose] 81 mg PO DAILY 04/25/18 05/09/18 lamotrigine 50 mg PO BID 04/25/18 05/09/18 lovastatin 40 mg PO BID 04/25/18 05/09/18 metoprolol tartrate 50 mg PO BID 04/25/18 05/09/18 pregabalin [Lyrica] 75 mg PO BID 04/25/18 05/09/18 tamsulosin 0.4 mg PO DAILY 04/25/18 05/09/18 tramadol 50 mg PO BID PRN 04/25/18 05/09/18 ciprofloxacin HCl 75 mg PO BID 05/09/18 05/09/18 Allergies Allergy/AdvReac Type Severity Reaction Status Date / Time No Known Allergies Allergy Verified 04/25/18 01:08 Review of Systems ROS: all other systems reviewed are negative [facility] Medical History Medical History Neuropathy (Acute) Prostate disorder (Acute) Hypertension (Acute) Gout (Acute) Surgical History Surgical History H/O knee surgery (Acute) History of appendectomy (Acute) History of tonsillectomy (Acute) Social History Social History Substance History: No History of Abuse Second Hand Smoke Exposure: No Smoking Status: Never smoker Tobacco Type: Pipe and Cigars How Often Do You Have a Drink Containing Alcohol: Monthly or less Recent Travel in [facility] within the Last 8 Weeks: No Recent Out of Country Travel within the Last 8 Weeks: No Immunization History Tetanus Immunization: Unsure Hx Influenza Vaccine This Season: No Exam Narrative Exam Narrative: GENERAL: Well appearing SKIN: Focused skin assessment warm/dry. HEAD: Atraumatic. Normocephalic. EYES: Pupils equal and round. No scleral icterus. No injection or drainage. ENT: No nasal bleeding or discharge. Mucous membranes pink and moist. Tongue is midline. No uvula deviation. NECK: Trachea midline. No JVD. CARDIOVASCULAR: Regular rate and rhythm. No murmur appreciated. RESPIRATORY: No accessory muscle use. Clear to auscultation. Breath sounds equal bilaterally. GASTROINTESTINAL: Abdomen soft, non-tender, nondistended. Hepatic and splenic margins not palpable. MUSCULOSKELETAL: No obvious deformities. No clubbing. No cyanosis. No edema. NEUROLOGICAL: Awake and alert. No obvious cranial nerve deficits. Motor grossly within normal limits. Normal speech. PSYCHIATRIC: Appropriate mood and affect; insight and judgment normal. Course Initial Documented Vital Signs Temperature 98.2 F 05/09/18 14:27 Pulse Rate 69 05/09/18 14:27 Respiratory Rate 19 05/09/18 14:27 Blood Pressure 111/58 L 05/09/18 14:27 Pulse Oximetry 98 05/09/18 14:27 Last Documented Vital Signs Temperature 98.2 F 05/09/18 14:27 Pulse Rate 69 05/09/18 14:27 Respiratory Rate 19 05/09/18 14:27 Blood Pressure 111/58 L 05/09/18 14:27 Pulse Oximetry 98 05/09/18 14:27 Medical Decision Making ARMINDA Attestation ARMINDA supervised visit: Yes Attestation: I, Dr. Queen, have reviewed the advance practice practitioner's documentation and am in agreement, met with the patient face to face, made the diagnosis, and the medical decision making was done by me. *My assessment and Findings: Patient seen and evaluated with PA, please see PA notes for further details. Patient has been sent in by product applications scientist for a worsening foot infection, planning for admissionFor treatment with IV antibiotics. Workup was done, and x-rays are showing Charcot's fluid fluids as well as Lisfranc fractures. MDM Narrative Medical decision making narrative: 77-year-old male the presents to the ED for evaluation of infection of the right foot. Patient was properly examined and was found to have signs and symptoms consistent appears to be infection. Patient came here with paperwork from the product applications scientist who wants the patient to be admitted with IV antibiotics MRI and labs. All of this was ordered by me. Patient was started on Zosyn and vancomycin. Patient understands reasons for need for admission. Case discussed with Dr. Antunez who at this time recommends no n.p.o. status and at this time the recommend IV antibiotics. No surgery but will consult. Case discussed with Dr. Golden who agrees admission to his service. Case discussed with my attending agrees with plan. Medical Screen Exam Complete: Yes Emergency Medical Condition: Yes Differential Diagnosis Differential Diagnosis: Osteomyelitis versus failed outpatient treatment versus cellulitis versus joint infection versus sepsis Medical Records Medical records reviewed: Yes I reviewed the patient's medical records. Lab Data Lab results reviewed: Yes I reviewed the patient's lab results. Lab results narrative: CRp and ESR elevated Result diagrams: 05/09/18 15:30 05/09/18 15:30 Lab Results 05/09/18 05/09/18 05/09/18 Range/Units 15:30 15:30 15:30 WBC 7.3 (4.0-11.0) th/mm3 RBC 4.21 L (4.50-5.90) mil/mm3 Hgb 12.5 L (13.0-17.0) gm/dL Hct 37.7 L (39.0-51.0) % MCV 89.5 (80.0-100.0) fL MCH 29.6 (27.0-34.0) pg MCHC 33.1 (32.0-36.0) % RDW 14.2 (11.6-17.2) % Plt Count 302 (150-450) th/mm3 MPV 6.8 L (7.0-11.0) fL Neut % (Auto) 70.0 (16.0-70.0) % Lymph % (Auto) 20.2 (9.0-44.0) % [place] % (Auto) 6.3 (0.0-8.0) % Eos % (Auto) 2.6 (0.0-4.0) % Baso % (Auto) 0.9 (0.0-2.0) % Neut # (Auto) 5.1 (1.8-7.7) th/mm3 Lymph # (Auto) 1.5 (1.0-4.8) th/mm3 [place] # (Auto) 0.5 (0.0-0.9) th/mm3 Eos # (Auto) 0.2 (0.0-0.4) th/mm3 Baso # (Auto) 0.1 (0.0-0.2) th/mm3 WBC Differential . Differential Comment Auto diff final ESR (0-20) mm/hr PT 11.3 (9.8-11.6) sec INR 1.1 Ratio APTT 26.3 (24.3-30.1) sec Sodium 143 (136-145) meq/L Potassium 4.1 (3.5-5.1) meq/L Chloride 107 (98-107) meq/L Carbon Dioxide 28.2 (21.0-32.0) meq/L Anion Gap 8 (5-15) meq/L BUN 17 (7-18) mg/dL Creatinine 1.18 (0.60-1.30) mg/dL Estimated GFR 60 L (>89) mL/min Random Glucose 99 (74-106) mg/dL Calcium 9.0 (8.5-10.1) mg/dL Total Bilirubin 0.2 (0.2-1.0) mg/dL AST 23 (15-37) U/L ALT 25 (12-78) U/L Alkaline Phosphatase 96 (45-117) U/L C-Reactive Protein 0.70 H (0.00-0.30) mg/dL Total Protein 7.4 (6.4-8.2) g/dL Albumin 3.3 L (3.4-5.0) g/dL 05/09/18 Range/Units 15:30 WBC (4.0-11.0) th/mm3 RBC (4.50-5.90) mil/mm3 Hgb (13.0-17.0) gm/dL Hct (39.0-51.0) % MCV (80.0-100.0) fL MCH (27.0-34.0) pg MCHC (32.0-36.0) % RDW (11.6-17.2) % Plt Count (150-450) th/mm3 MPV (7.0-11.0) fL Neut % (Auto) (16.0-70.0) % Lymph % (Auto) (9.0-44.0) % [place] % (Auto) (0.0-8.0) % Eos % (Auto) (0.0-4.0) % Baso % (Auto) (0.0-2.0) % Neut # (Auto) (1.8-7.7) th/mm3 Lymph # (Auto) (1.0-4.8) th/mm3 [place] # (Auto) (0.0-0.9) th/mm3 Eos # (Auto) (0.0-0.4) th/mm3 Baso # (Auto) (0.0-0.2) th/mm3 WBC Differential Differential Comment ESR 77 H (0-20) mm/hr PT (9.8-11.6) sec INR Ratio APTT (24.3-30.1) sec Sodium (136-145) meq/L Potassium (3.5-5.1) meq/L Chloride (98-107) meq/L Carbon Dioxide (21.0-32.0) meq/L Anion Gap (5-15) meq/L BUN (7-18) mg/dL Creatinine (0.60-1.30) mg/dL Estimated GFR (>89) mL/min Random Glucose (74-106) mg/dL Calcium (8.5-10.1) mg/dL Total Bilirubin (0.2-1.0) mg/dL AST (15-37) U/L ALT (12-78) U/L Alkaline Phosphatase (45-117) U/L C-Reactive Protein (0.00-0.30) mg/dL Total Protein (6.4-8.2) g/dL Albumin (3.4-5.0) g/dL Imaging Data Attestation: I personally reviewed and interpreted this imaging study as follows : Radiologist's impression: Foot X-Ray 05/09/18 15:21 CONCLUSION: Charcot foot with Lisfranc fracture as detailed above. Discharge Plan Discharge Disposition Patient Disposition: 30 Still Patient Discharge Details Diagnosis: Cellulitis of foot, Failure of outpatient treatment, Osteomyelitis Physicians Team ED Provider: Trina Queen ED Midlevel Provider: Harish Joyce Primary Care Provider: David Santos Attending Provider: Sheldon Johnson Status ED Status: Admitted Patient
[2018-05-09 16:03] LABS: Alkaline Phosphatase 96 U/L (45-117); Total Protein 7.4 g/dL (6.4-8.2)
--- NOTE | 2018-05-09 16:03 | XR ---
EXAM DATE: 05/09/2018 3:21 PM EDT AGE/SEX: 77 years / Male INDICATIONS: Left foot, 2nd digit swelling with no injury. CLINICAL DATA: This is the patient's initial encounter. Patient reports that signs and symptoms have been present for 4 - 6 months and indicates a pain score of 0/10. MEDICAL/SURGICAL HISTORY: None. None. COMPARISON: No prior exams available for comparison. FINDINGS: There is lateral subluxation of the second through fifth metatarsals. Collapse of the mid foot with p es planus. Heterotopic bone formation seen adjacent to the metatarsal bases. Lateral subluxation of t he middle phalanx of the second toe relative to the proximal phalanx with resulting valgus angulation . Spurring of the calcaneus. CONCLUSION: Charcot foot with Lisfranc fracture as detailed above. Electronically signed by: Jose R Chen MD 05/09/2018 4:01 PM EDT
--- NOTE | 2018-05-09 17:50 | P.HPIM ---
History of Present Illness Service: [facility] Primary Care Physician: David Santos MD History of Present Illness: Pt is 77 yo with chronic bony deformities of bilateral feet and neuropathy. Says he developed a rubbing injury to medial aspect of right second toe. was placed on cipro last week about 5 or 6 days ago. Seen by Podiatry today DR Castillo and sent to ED for iv abx, mri for possible osteo. Pt given vanco/zosyn in ED and mri pending. PMH bilateral TKA appendectomy htn hyperlipidemia gout chronic bony deformities bilateral feet bilateral feet peripheral neuropathy bph sh no tob 4beers per week fh: nc - Diagnosis (1) Osteomyelitis (2) Cellulitis of foot (3) Neuropathy Inpatient Certification: I certify that the inpatient services were ordered in accordance with Medicare regulations governing the order. This includes certification that hospital inpatient services are reasonable and necessary and in the case of services not specified as inpatient-only under 42 CFR 419.22(n), that they are appropriately provided as inpatient services in accordance to with the 2-midnight benchmark under 43 CFR 412.3(e) Review of Systems right second toe ulceration/redness PMFSH - History History Provided By: Patient - Medical History Medical History: Medical History (Last Reviewed 05/09/18 @ 16:00 by RUSSELL Spring) Neuropathy (Chronic) Prostate disorder (Acute) Hypertension (Acute) Gout (Acute) - Surgical History Surgical History: Surgical History (Last Reviewed 05/09/18 @ 16:00 by RUSSELL Spring) H/O knee surgery History of appendectomy History of tonsillectomy - Tobacco History Second Hand Smoke Exposure: No Smoking Status: Never smoker Tobacco Type: Pipe, Cigars - Alcohol History How Often Do You Have a Drink Containing Alcohol: Monthly or less - Substance Use History Substance History: No History of Abuse - Travel History Recent Travel in the [place] Within the Last 8 Weeks: No Recent Travel Out of the Country Within the Last 8 Weeks: No - Immunization History Tetanus Immunization: Unsure Hx Influenza Vaccine This Season: No Medications and Allergies Allergies Allergy/AdvReac Type Severity Reaction Status Date / Time No Known Allergies Allergy Verified 04/25/18 01:08 Home Medications Medication Instructions Recorded Confirmed Type acyclovir 400 mg PO Q4H 04/25/18 05/09/18 History allopurinol 300 mg PO DAILY 04/25/18 05/09/18 History aspirin [Aspirin Low Dose] 81 mg PO DAILY 04/25/18 05/09/18 History lamotrigine 50 mg PO BID 04/25/18 05/09/18 History lovastatin 40 mg PO BID 04/25/18 05/09/18 History metoprolol tartrate 50 mg PO BID 04/25/18 05/09/18 History pregabalin [Lyrica] 75 mg PO BID 04/25/18 05/09/18 History tamsulosin 0.4 mg PO DAILY 04/25/18 05/09/18 History tramadol 50 mg PO BID PRN 04/25/18 05/09/18 History ciprofloxacin HCl 75 mg PO BID 05/09/18 05/09/18 History Exam Vital signs: Vital Signs 05/09/18 14:27 Temperature 98.2 F Pulse Rate 69 Respiratory Rate 19 Blood Pressure 111/58 L Pulse Oximetry 98 Intake & Output 05/08/18 05/09/18 05/09/18 18:59 06:59 18:59 Intake Total 50 / 50 Balance 50 / 50 Weight 129.274 kg Intake: IV 50 / 50 Zosyn 3.375 GM Premix 50 ML @ 50 / 50 100 mls/hr IV.SIG ONCE ONE Rx#: [id number] heart reg lung cta abd s/nt ext right second toe swelling/redness/medial ulceration with some dorsal foot redness/streaking judy foot deformities noted bilaterally, Results - Labs CBC & Chem 7: 05/12/18 06:28 05/12/18 06:28 Labs: Short CBC 05/09/18 Range/Units 15:30 WBC 7.3 (4.0-11.0) th/mm3 Hgb 12.5 L (13.0-17.0) gm/dL Hct 37.7 L (39.0-51.0) % Plt Count 302 (150-450) th/mm3 BMP 05/09/18 15:30 Sodium 143 Potassium 4.1 Chloride 107 Carbon Dioxide 28.2 BUN 17 Creatinine 1.18 Calcium 9.0 Liver Function 05/09/18 Range/Units 15:30 Total Bilirubin 0.2 (0.2-1.0) mg/dL AST 23 (15-37) U/L ALT 25 (12-78) U/L Alkaline Phosphatase 96 (45-117) U/L Albumin 3.3 L (3.4-5.0) g/dL - Imaging Impressions Foot X-Ray 05/09/18 15:21 CONCLUSION: Charcot foot with Lisfranc fracture as detailed above. Caprini VTE Risk Assessment Caprini VTE Risk Assessment: Moderate/High Risk (score >= 2) Caprini Risk Assessment Model: Point Value = 1 Point Value = 2 Point Value = 3 Point Value = 5 Age 41-60 Minor surgery BMI > 25 kg/m2 Swollen legs Varicose veins or History of unexplained or recurrent spontaneous Oral contraceptives or hormone replacement Sepsis (< 1 month) Serious lung disease, including pneumonia (< 1 month) Abnormal pulmonary function Acute myocardial infarction Congestive heart failure (< 1 month) History of inflammatory bowel disease Medical patient at bed rest Age 61-74 Arthroscopic surgery Major open surgery (> 45 min) Laparoscopic surgery (> 45 min) Malignancy Confined to bed (> 72 hours) Immobilizing plaster cast Central venous access Age >= 75 History of VTE Family history of VTE Factor V Leiden Prothrombin [id number] Lupus anticoagulant Anticardiolipin antibodies Elevated serum homocysteine Heparin-induced thrombocytopenia Other congenital or acquired thrombophilia Stroke (< 1 month) Elective arthroplasty Hip, pelvis, or leg fracture Acute spinal cord injury (< 1 month) Prophylaxis Regimen: Total Risk Factor Score Risk Level Prophylaxis Regimen 0-1 Low Early ambulation 2 Moderate Order ONE of the following: *Sequential Compression Device (SCD) *Heparin 5000 units SQ BID 3-4 Higher Order ONE of the following medications: *Heparin 5000 units SQ TID *Enoxaparin/Lovenox 40 mg SQ daily (WT < 150 kg, CrCl > 30 mL/min) *Enoxaparin/Lovenox 30 mg SQ daily (WT < 150 kg, CrCl > 10-29 mL/min) *Enoxaparin/Lovenox 30 mg SQ BID (WT < 150 kg, CrCl > 30 mL/min) AND/OR *Sequential Compression Device (SCD) 5 or more Highest Order ONE of the following medications: *Heparin 5000 units SQ TID (Preferred with Epidurals) *Enoxaparin/Lovenox 40 mg SQ daily (WT < 150 kg, CrCl > 30 mL/min) *Enoxaparin/Lovenox 30 mg SQ daily (WT < 150 kg, CrCl > 10-29 mL/min) *Enoxaparin/Lovenox 30 mg SQ BID (WT < 150 kg, CrCl > 30 mL/min) AND *Sequential Compression Device (SCD) Assessment and Plan - Assessment (1) Osteomyelitis Code(s): M86.9 - Osteomyelitis, unspecified Status: Acute Plan: 1. right second toe cellulitis and most likely osteomyelitis. cellulitis extending to dorsal foot 2. chronic bony foot deformities and peripheral neuropathy. 3. gout 4. htn 5. bph 6. hyperlipidemia 1. consult podiatry 2. mri foot pending to eval for osteo 3. npo after MN in case osteo found 4. cont broad abx 5. cont home meds as appropriate 6. dvt prophylaxis. (2) Cellulitis of foot Code(s): L03.119 - Cellulitis of unspecified part of limb Status: Acute (3) Neuropathy Code(s): G62.9 - Polyneuropathy, unspecified Status: Chronic (1) Osteomyelitis Qualifiers: Osteomyelitis type: unspecified type Osteomyelitis location: foot Laterality : right Qualified Code(s): M86.9 - Osteomyelitis, unspecified
[2018-05-09] MEDS ORDERED: Gadobutrol PF 7.5 MMOL/7.5 ML Vial (for RAD) IV.SIG ONE (18:13)
[2018-05-09] MEDS ORDERED: Vancomycin Consult Pharmacy OTHER PRN (19:21)
[2018-05-09] MEDS ORDERED: Acetaminophen 325 MG Tablet PO PRN (19:22)
--- NOTE | 2018-05-09 20:21 | MR ---
EXAM DATE: 05/09/2018 4:26 PM EDT AGE/SEX: 77 years / Male INDICATIONS: Osteoarthritis. Second toe right foot swelling for one week. CLINICAL DATA: This is the patient's initial encounter. Patient reports that signs and symptoms have been present for 1 week and indicates a pain score of 8/10. MEDICAL/SURGICAL HISTORY: None. Tonsillectomy. Appendectomy. Knee replacment. COMPARISON: C, FOOT COMPLETE RIGHT 3V, 05/09/2018. . TECHNIQUE: Multiplanar, multisequence MRI examination was performed without contrast and after th e intravenous administration of 13 ml Gadavist (gadobutrol) single exam dose. FINDINGS: Cortical irregularity, hypertrophic bone and lateral subluxation seen of the proximal interphalangeal joint of the second toe. There is an effusion and synovitis. Marrow edema seen centrally throughout the proximal and middle phalanges. There is corresponding T1 signal abnormality involving the distal two thirds of the proximal phalanx and patchy throughout the middle phalanx. Distal phalanx of the se cond toe is within normal limits. Soft tissues of the second enhanced robustly and there is also enha ncement of the proximal and middle phalanges. There is flexor greater than extensor tenosynovitis. No tendon tears are seen. No well-defined/drainable fluid collections are seen. There is severe osteoarthritis with reactive appearing marrow edema seen of Lisfranc joint. There is a large collapse. Large heel spur. Plantar fascia within normal limits. The peritendinitis and an enthesophyte seen of the Achilles insertion. CONCLUSION: 1. Diffuse soft tissue inflammatory changes of the second toe. Acute on chronic appearing destructiv e arthropathy at the proximal interphalangeal joint. An infectious etiology would be in the different ial. If the soft tissues or joint are infected, there are signal changes of the proximal and middle p halanges consistent with osteomyelitis. 2. Severe arch collapse. Severe chronic Lisfranc arthropathy with may be neuropathic in the proper c linical setting. 3. Peritendinitis and enthesopathic changes of the Achilles insertion. No tear. Electronically signed by: Edison Clark MD 05/09/2018 8:20 PM EDT
[2018-05-09] MEDS: Metoprolol Tartrate 50 MG Tablet PO SCH (22:05)
[2018-05-09] MEDS: Pregabalin 75 MG Capsule PO SCH (22:06)
[2018-05-09] MEDS: lamoTRIgine 25 MG TABLET PO SCH (22:51)
[2018-05-10] MEDS: Piperacil/Tazo 3.375 GM Premix 50 ML IV.SIG SCH ×5 (00:15→23:29)
[2018-05-10] MEDS ORDERED: Sodium Chloride 0.9% 2 ML Flush PRN IV.FLUSH (07:41)
[2018-05-10] MEDS: Sodium Chloride 0.9% 2 ML Flush BID IV.FLUSH SCH ×2 (08:08→20:38)
[2018-05-10] MEDS: Sod Chloride 0.9% Inj 1,000 ML IV.CONT SCH ×2 (08:08→23:29)
[2018-05-10] MEDS: Allopurinol 300 MG Tablet PO SCH (08:35)
[2018-05-10] MEDS: Metoprolol Tartrate 50 MG Tablet PO SCH ×2 (08:35→20:38)
[2018-05-10] MEDS: lamoTRIgine 25 MG TABLET PO SCH ×2 (08:35→20:38)
[2018-05-10] MEDS: Pregabalin 75 MG Capsule PO SCH ×2 (08:35→20:38)
--- NOTE | 2018-05-10 08:50 | P.PNIM ---
Subjective Interval history: Follow up: osteomyelitis with right second toe cellulitis Patient feels that the right second toe is less swollen and less red than yesterday Physical Exam Vital signs: Vital Signs 05/09/18 14:27 05/09/18 17:10 05/09/18 22:04 Temperature 98.2 F 98 F Pulse Rate 69 71 65 Respiratory Rate 19 17 18 Blood Pressure 111/58 L 132/76 122/58 L Pulse Oximetry 98 98 95 05/10/18 00:17 05/10/18 07:45 Temperature 98.1 F 97.5 F L Pulse Rate 54 L 58 L Respiratory Rate 18 18 Blood Pressure 112/58 L 109/55 L Pulse Oximetry 93 L 92 L Intake & Output 05/09/18 05/10/18 05/10/18 18:59 06:59 18:59 Intake Total 300 / 300 830 / 830 Output Total 100 / 100 Balance 300 / 300 830 / 830 -100 / -100 Weight 129.274 kg 128.8 kg Intake: IV 300 / 300 350 / 350 Zosyn 3.375 GM Premix 50 ML @ 50 / 50 100 / 100 100 mls/hr IV.SIG Q6H LEÓN Rx#: [id number] Vancomycin Inj 1,000 MG In NS 250 / 250 250 / 250 Inj 250 ML @ 250 mls/hr IV.SIG ONCE ONE Rx#:[id number] Oral 480 / 480 Output: Urine 100 / 100 Other: # Voids 2 Date of Last Bowel Movement 05/08/18 Weight On Admission 129 kg Narrative: heart reg lung cta abd s/nt ext right second toe swelling/redness/medial ulceration with dressing intact judy foot deformities noted bilaterally, Results - Labs CBC & Chem 7: 05/09/18 15:30 05/09/18 15:30 Laboratory Results - last 24 hr 05/09/18 05/09/18 05/09/18 15:30 15:30 15:30 WBC 7.3 RBC 4.21 L Hgb 12.5 L Hct 37.7 L MCV 89.5 MCH 29.6 MCHC 33.1 RDW 14.2 Plt Count 302 MPV 6.8 L Neut % (Auto) 70.0 Lymph % (Auto) 20.2 [place] % (Auto) 6.3 Eos % (Auto) 2.6 Baso % (Auto) 0.9 Neut # (Auto) 5.1 Lymph # (Auto) 1.5 [place] # (Auto) 0.5 Eos # (Auto) 0.2 Baso # (Auto) 0.1 WBC Differential . Differential Comment Auto diff final ESR PT 11.3 INR 1.1 APTT 26.3 Sodium 143 Potassium 4.1 Chloride 107 Carbon Dioxide 28.2 Anion Gap 8 BUN 17 Creatinine 1.18 Estimated GFR 60 L Random Glucose 99 Calcium 9.0 Total Bilirubin 0.2 AST 23 ALT 25 Alkaline Phosphatase 96 C-Reactive Protein 0.70 H Total Protein 7.4 Albumin 3.3 L 05/09/18 15:30 WBC RBC Hgb Hct MCV MCH MCHC RDW Plt Count MPV Neut % (Auto) Lymph % (Auto) [place] % (Auto) Eos % (Auto) Baso % (Auto) Neut # (Auto) Lymph # (Auto) [place] # (Auto) Eos # (Auto) Baso # (Auto) WBC Differential Differential Comment ESR 77 H PT INR APTT Sodium Potassium Chloride Carbon Dioxide Anion Gap BUN Creatinine Estimated GFR Random Glucose Calcium Total Bilirubin AST ALT Alkaline Phosphatase C-Reactive Protein Total Protein Albumin - Imaging Impressions Foot MRI 05/09/18 15:19 CONCLUSION: 1. Diffuse soft tissue inflammatory changes of the second toe. Acute on chronic appearing destructive arthropathy at the proximal interphalangeal joint. An infectious etiology would be in the differential. If the soft tissues or joint are infected, there are signal changes of the proximal and middle phalanges consistent with osteomyelitis. 2. Severe arch collapse. 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 3. Peritendinitis and enthesopathic changes of the Achilles insertion. No tear. Foot X-Ray 05/09/18 15:21 CONCLUSION: Charcot foot with Lisfranc fracture as detailed above. Assessment and Plan - Assessment (1) Osteomyelitis Code(s): M86.9 - Osteomyelitis, unspecified Status: Acute Plan: 1. right second toe cellulitis and most likely osteomyelitis. cellulitis extending to dorsal foot 2. chronic bony foot deformities and peripheral neuropathy. 3. gout 4. htn 5. bph 6. hyperlipidemia - consult podiatry - mri right foot 1. Diffuse soft tissue inflammatory changes of the second toe. Acute on chronic appearing destructive arthropathy at the proximal interphalangeal joint. An infectious etiology would be in the differential. If the soft tissues or joint are infected, there are signal changes of the proximal and middle phalanges consistent with osteomyelitis. 2. Severe arch collapse. 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 3. Peritendinitis and enthesopathic changes of the Achilles insertion. No tear. - Right Foot X-Ray:Charcot foot with Lisfranc fracture as detailed above. - npo awaiting input from podiatry possible surgical intervention - IVFs - cont broad abx with Zosyn and vancomycin, pharmacy to dose vanco - cont home meds as appropriate - CBC and BMP in AM - dvt prophylaxis. (2) Cellulitis of foot Code(s): L03.119 - Cellulitis of unspecified part of limb Status: Acute (3) Neuropathy Code(s): G62.9 - Polyneuropathy, unspecified Status: Chronic (1) Osteomyelitis Qualifiers: Osteomyelitis type: unspecified type Osteomyelitis location: foot Laterality : right Qualified Code(s): M86.9 - Osteomyelitis, unspecified
[2018-05-10] MEDS ORDERED: Vancomycin Inj 2,000 MG in Sodium Chlor 0.9% Inj 500 ML IV.SIG SCH (20:00)
--- NOTE | 2018-05-10 22:58 | MB ---
cc: Christelle Yu DPM DATE: 05/10/2018 HISTORY OF PRESENT ILLNESS: The patient is a 77-year-old male with a chronic history of bilateral feet neuropathy, Charcot. He was seen on 05/09/[address] Santos and sent to the ED for IV antibiotics, probing of the right second digit wound to bone. The patient was started on vancomycin and Zosyn. REVIEW OF SYSTEMS: A 6-point review of systems is unremarkable. PAST SURGICAL HISTORY: Bilateral TKA, appendectomy. PAST MEDICAL HISTORY: Hypertension, hyperlipidemia, gout, neuropathy, BPH. The patient denies illicit drugs. SOCIAL HISTORY: Positive social drinking. MEDICATIONS: Per HPI. EXAMINATION OF EXTREMITIES: Right second digit DP with a sausage red, swollen digit. There is no active drainage. It is mildly warm. There is no streaking. There is a medial ulceration which does probe. The foot presents with a collapsed arch, pronated foot, DP and PT palpable. Protective sensation absent. LABORATORIES AND STUDIES: His WBC on 05/09/2013 of 7.3, RBC of 74.21, H and H 12.5 and 37.7. ESR of 77. Right foot MRI with increased signal intensity at the proximal and middle phalanx of the right second digit. This does not appear to have any abscesses. ASSESSMENT: Right second digit osteomyelitis. PLAN: The patient is to get a bone biopsy from the middle of the proximal phalanx and then plan for 6 weeks of IV antibiotics. We did discuss surgical intervention, but we will recommend treatment with IV antibiotics in lieu of amputation. Discussed with Dr. Malick Jalloh and Mahogany Price. We will plan for bone biopsy at bedside on 05/11/2018. Christelle Yu DPM SR/yajaira , 08:51 PM , 09:00 PM
[2018-05-11] MEDS: Piperacil/Tazo 3.375 GM Premix 50 ML IV.SIG SCH ×4 (05:10→23:42)
[2018-05-11 08:07] LABS: Baso # (Auto) 0.1 th/mm3 (0.0-0.2); Eos # (Auto) 0.2 th/mm3 (0.0-0.4); Eos % (Auto) 4.2 % (0.0-4.0); Hematocrit 36.9 % (39.0-51.0); Hemoglobin 12.3 gm/dL (13.0-17.0); Lymph # (Auto) 1.1 th/mm3 (1.0-4.8); Lymph % (Auto) 19.8 % (9.0-44.0); Mean Corpuscular HGB Conc 33.5 % (32.0-36.0); Mean Corpuscular Hemoglobin 29.9 pg (27.0-34.0); Mean Corpuscular Volume 89.2 fL (80.0-100.0); Mean Platelet Volume 6.9 fL (7.0-11.0); Mono # (Auto) 0.4 th/mm3 (0.0-0.9); Mono % (Auto) 7.5 % (0.0-8.0); Neut # (Auto) 3.7 th/mm3 (1.8-7.7); Neut % (Auto) 67.5 % (16.0-70.0); Platelet Count 263 th/mm3 (150-450); Red Blood Count 4.13 mil/mm3 (4.50-5.90); Red Cell Distribution Width 14.1 % (11.6-17.2); White Blood Count 5.6 th/mm3 (4.0-11.0)
[2018-05-11 08:39] LABS: Calcium 8.9 mg/dL (8.5-10.1); Carbon Dioxide 28.1 meq/L (21.0-32.0); Potassium 4.1 meq/L (3.5-5.1)
[2018-05-11] MEDS: Allopurinol 300 MG Tablet PO SCH (09:09)
[2018-05-11] MEDS: Metoprolol Tartrate 50 MG Tablet PO SCH ×2 (09:10→21:54)
[2018-05-11] MEDS: lamoTRIgine 25 MG TABLET PO SCH ×2 (09:10→21:54)
[2018-05-11] MEDS: Pregabalin 75 MG Capsule PO SCH ×2 (09:10→21:54)
[2018-05-11] MEDS: Sod Chloride 0.9% Inj 1,000 ML IV.CONT SCH ×3 (09:15→23:42)
--- NOTE | 2018-05-11 09:16 | P.PNIM ---
Subjective Interval history: Pt is frustrated with being in the hospital still He is anxious for discharge. He denies any specific pain He is tolerating oral intake. Physical Exam Vital signs: Vital Signs 05/10/18 11:47 05/10/18 12:00 05/10/18 20:00 Temperature 97.3 F L 97.8 F 98.3 F Pulse Rate 53 L 55 L 67 Respiratory Rate 18 20 18 Blood Pressure 94/52 L 116/78 117/93 H Pulse Oximetry 95 98 95 05/11/18 00:00 05/11/18 08:00 Temperature 98 F 97.5 F L Pulse Rate 62 87 Respiratory Rate 18 18 Blood Pressure 119/82 125/67 Pulse Oximetry 95 95 Intake & Output 05/10/18 05/11/18 05/11/18 18:59 06:59 18:59 Intake Total 1060 / 1060 1860 / 1860 Output Total 100 / 100 Balance 960 / 960 1860 / 1860 Weight 128.8 kg Intake: IV 100 / 100 1620 / 1620 NS Inj 1,000 ML @ 75 mls/hr IV. 1000 / 1000 CONT .[id number] LEÓN Rx#:[id number] Zosyn 3.375 GM Premix 50 ML @ 100 / 100 100 / 100 100 mls/hr IV.SIG Q6H LEÓN Rx#: [id number] Vancomycin Inj 2,000 MG In NS 520 / 520 Inj 500 ML @ 260 mls/hr IV.SIG Q24H LEÓN Rx#:[id number] Oral 960 / 960 240 / 240 Output: Urine 100 / 100 Other: # Voids 3 2 Date of Last Bowel Movement 05/08/18 05/10/18 # Bowel Movements 0 1 Narrative: General: NAD, AAOx3 Heart: Regular Lung: CTA bilaterally Abd: +BS, soft ND/NT Ext: Right second toe swelling/redness/medial ulceration with dressing intact, judy foot deformities noted bilaterally Results - Labs CBC & Chem 7: 05/11/18 07:21 05/11/18 07:21 Laboratory Results - last 24 hr 05/11/18 05/11/18 07:21 07:21 WBC 5.6 RBC 4.13 L Hgb 12.3 L Hct 36.9 L MCV 89.2 MCH 29.9 MCHC 33.5 RDW 14.1 Plt Count 263 MPV 6.9 L Neut % (Auto) 67.5 Lymph % (Auto) 19.8 [place] % (Auto) 7.5 Eos % (Auto) 4.2 H Baso % (Auto) 1.0 Neut # (Auto) 3.7 Lymph # (Auto) 1.1 [place] # (Auto) 0.4 Eos # (Auto) 0.2 Baso # (Auto) 0.1 WBC Differential . Differential Comment Auto diff final Sodium 143 Potassium 4.1 Chloride 109 H Carbon Dioxide 28.1 Anion Gap 6 BUN 14 Creatinine 1.17 Estimated GFR 61 L Random Glucose 93 Calcium 8.9 Microbiology 05/09/18 17:00 Abscess - Toe Gram Stain - Final 05/09/18 17:00 Abscess - Toe Wound Culture - Preliminary Staphylococcus aureus 05/09/18 15:20 Blood - Peripheral Aerobic Blood Culture - Preliminary No growth in 1 day 05/09/18 15:20 Blood - Peripheral Anaerobic Blood Culture - Preliminary No growth in 1 day 05/09/18 15:25 Blood - Peripheral Aerobic Blood Culture - Preliminary No growth in 1 day 05/09/18 15:25 Blood - Peripheral Anaerobic Blood Culture - Preliminary No growth in 1 day - Imaging Impressions Foot X-Ray 05/09/18 15:21 CONCLUSION: Charcot foot with Lisfranc fracture as detailed above. Assessment and Plan - Assessment (1) Osteomyelitis Code(s): M86.9 - Osteomyelitis, unspecified Status: Acute Plan: 1. Right second toe cellulitis and most likely osteomyelitis. cellulitis extending to dorsal foot 2. chronic bony foot deformities and peripheral neuropathy. 3. gout 4. htn 5. bph 6. hyperlipidemia - Appreciate consult from podiatry - MRI right foot (05/09/18) 1. Diffuse soft tissue inflammatory changes of the second toe. Acute on chronic appearing destructive arthropathy at the proximal interphalangeal joint. An infectious etiology would be in the differential. If the soft tissues or joint are infected, there are signal changes of the proximal and middle phalanges consistent with osteomyelitis. 2. Severe arch collapse. 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 3. Peritendinitis and enthesopathic changes of the Achilles insertion. No tear. - Right Foot X-Ray:Charcot foot with Lisfranc fracture as detailed above. - Appreciate input from podiatry - Pt is planned for bedside bone biopsy today - IVFs - cont broad abx with Zosyn and vancomycin, pharmacy to dose vanco - cont home meds as appropriate - CBC and BMP in AM - DVT prophylaxis. (2) Cellulitis of foot Code(s): L03.119 - Cellulitis of unspecified part of limb Status: Acute (3) Neuropathy Code(s): G62.9 - Polyneuropathy, unspecified Status: Chronic (1) Osteomyelitis Qualifiers: Osteomyelitis type: unspecified type Osteomyelitis location: foot Laterality : right Qualified Code(s): M86.9 - Osteomyelitis, unspecified
[2018-05-11] MEDS: Sodium Chloride 0.9% 2 ML Flush BID IV.FLUSH SCH ×2 (09:17→23:42)
[2018-05-11] MEDS: Vancomycin Inj 2,000 MG in Sodium Chlor 0.9% Inj 500 ML IV.SIG SCH (15:02)
--- NOTE | 2018-05-11 21:24 | P.PNPOD ---
Subjective Interval history: Right 2nd digit OM. Patient is AAO x 3 Physical Exam Vital signs: Vital Signs 05/11/18 00:00 05/11/18 08:00 05/11/18 12:00 Temperature 98 F 97.5 F L 97.9 F Pulse Rate 62 87 47 L Respiratory Rate 18 18 18 Blood Pressure 119/82 125/67 99/57 L Pulse Oximetry 95 95 95 05/11/18 15:59 05/11/18 19:54 Temperature 98.3 F 97.7 F Pulse Rate 63 65 Respiratory Rate 18 19 Blood Pressure 108/57 L 134/54 L Pulse Oximetry 97 97 Intake & Output 05/11/18 05/11/18 05/12/18 06:59 18:59 06:59 Intake Total 1860 / 1860 2236 / 2236 Balance 1860 / 1860 2236 / 2236 Weight 128.8 kg Intake: IV 1620 / 1620 1276 / 1276 NS Inj 1,000 ML @ 75 mls/hr IV. 1000 / 1000 656 / 656 CONT .[id number] [facility] Rx#:[id number] Zosyn 3.375 GM Premix 50 ML @ 100 / 100 100 / 100 100 mls/hr IV.SIG Q6H [facility] Rx#: [id number] Vancomycin Inj 2,000 MG In NS 520 / 520 520 / 520 Inj 500 ML @ 260 mls/hr IV.SIG Q18H [facility] Rx#:[id number] Oral 240 / 240 960 / 960 Other: # Voids 2 4 Date of Last Bowel Movement 05/10/18 05/10/18 # Bowel Movements 1 Narrative: Right 2nd digit with swelling , erythema and edema, medial ulceration. NVS unchanged. Medications and Allergies Active Medications: Active Medications Acetaminophen (Tylenol) 650 mg PO Q4H PRN PRN Reason: fever Allopurinol (Zyloprim) 300 mg PO DAILY [facility] Last Admin: 05/11/18 09:09 Dose: 300 mg Piperacillin/Tazobactam/Dextrose (Zosyn 3.375 Gm Premix) 50 mls @ 100 mls/hr IV.SIG Q6H [facility] Last Infusion: 05/11/18 17:43 Dose: Infused Sodium Chloride (Ns Inj) 1,000 mls @ 75 mls/hr IV.CONT .[id number] [facility] Last Admin: 05/11/18 10:35 Dose: Not Given Vancomycin HCl 2,000 mg/ (Sodium Chloride) 520 mls @ 260 mls/hr IV.SIG Q18H [facility] Last Infusion: 05/11/18 17:18 Dose: Infused Lamotrigine (Lamictal) 50 mg PO BID [facility] Last Admin: 05/11/18 09:10 Dose: 50 mg Metoprolol Tartrate (Lopressor) 50 mg PO BID [facility] Last Admin: 05/11/18 09:10 Dose: 50 mg Miscellaneous Information ([facility] Ordered Lab Info) 0 each OTHER ONCE ONE Stop: 05/13/18 01:46 Pharmacy Profile Note (Vancomycin Consult Pharmacy) 1 each OTHER UNSCH PRN PRN Reason: Pharmacy to dose Pravastatin Sodium (Pravachol) 40 mg PO BID [facility] Last Admin: 05/11/18 09:10 Dose: 40 mg Pregabalin (Lyrica) 75 mg PO BID [facility] Last Admin: 05/11/18 09:10 Dose: 75 mg Sodium Chloride (Ns Flush) 2 ml IV.FLUSH BID [facility] Last Admin: 05/11/18 09:17 Dose: Not Given Sodium Chloride (Ns Flush) 2 ml IV.FLUSH PRN PRN PRN Reason: FLUSH AFTER USING IV ACCESS Tamsulosin HCl (Flomax) 0.4 mg PO DAILY [facility] Last Admin: 05/11/18 09:09 Dose: 0.4 mg Tramadol HCl (Ultram) 50 mg PO BID PRN PRN Reason: PAIN 1-10 Allergies Allergy/AdvReac Type Severity Reaction Status Date / Time No Known Allergies Allergy Verified 04/25/18 01:08 Home Medications Medication Instructions Recorded Confirmed Type acyclovir 400 mg PO Q4H 04/25/18 05/09/18 History allopurinol 300 mg PO DAILY 04/25/18 05/09/18 History aspirin [Aspirin Low Dose] 81 mg PO DAILY 04/25/18 05/09/18 History lamotrigine 50 mg PO BID 04/25/18 05/09/18 History lovastatin 40 mg PO BID 04/25/18 05/09/18 History metoprolol tartrate 50 mg PO BID 04/25/18 05/09/18 History pregabalin [Lyrica] 75 mg PO BID 04/25/18 05/09/18 History tamsulosin 0.4 mg PO DAILY 04/25/18 05/09/18 History tramadol 50 mg PO BID PRN 04/25/18 05/09/18 History ciprofloxacin HCl 75 mg PO BID 05/09/18 05/09/18 History Results - Labs CBC & Chem 7: 05/11/18 07:21 05/11/18 07:21 Laboratory Results - last 24 hr 05/11/18 05/11/18 07:21 07:21 WBC 5.6 RBC 4.13 L Hgb 12.3 L Hct 36.9 L MCV 89.2 MCH 29.9 MCHC 33.5 RDW 14.1 Plt Count 263 MPV 6.9 L Neut % (Auto) 67.5 Lymph % (Auto) 19.8 [place] % (Auto) 7.5 Eos % (Auto) 4.2 H Baso % (Auto) 1.0 Neut # (Auto) 3.7 Lymph # (Auto) 1.1 [place] # (Auto) 0.4 Eos # (Auto) 0.2 Baso # (Auto) 0.1 WBC Differential . Differential Comment Auto diff final Sodium 143 Potassium 4.1 Chloride 109 H Carbon Dioxide 28.1 Anion Gap 6 BUN 14 Creatinine 1.17 Estimated GFR 61 L Random Glucose 93 Calcium 8.9 Microbiology 05/09/18 15:20 Blood - Peripheral Aerobic Blood Culture - Preliminary No growth in 2 days 05/09/18 15:20 Blood - Peripheral Anaerobic Blood Culture - Preliminary No growth in 2 days 05/09/18 15:25 Blood - Peripheral Aerobic Blood Culture - Preliminary No growth in 2 days 05/09/18 15:25 Blood - Peripheral Anaerobic Blood Culture - Preliminary No growth in 2 days 05/09/18 17:00 Abscess - Toe Gram Stain - Final 05/09/18 17:00 Abscess - Toe Wound Culture - Preliminary Staphylococcus aureus Assessment and Plan - Assessment (1) Cellulitis of foot Code(s): L03.119 - Cellulitis of unspecified part of limb Status: Acute (2) Osteomyelitis Code(s): M86.9 - Osteomyelitis, unspecified Status: Acute - Plan Right 2nd digit bone biopsy: proximal phalanx. DOS 05/11/18. bedside. Dr Chowdhury bone char kiln tender 05/12/18 Procedures: Right 2nd digit proximal phalanx bone biopsy. Time out with nursing staff. Consent signed. Prep, 6 cc of 2% lidocaine plain in a 2nd , right digit blk. Under sterile procedure, dorsal incision with # 15 blade. Bone biopsy with a Jamshidi Needle. The core was splint into 2 and sent for C and S and path. DSD applied. Patient tolerated the procedure to completion. (2) Osteomyelitis Qualifiers: Osteomyelitis type: unspecified type Osteomyelitis location: foot Laterality : right Qualified Code(s): M86.9 - Osteomyelitis, unspecified
[2018-05-12] MEDS: Piperacil/Tazo 3.375 GM Premix 50 ML IV.SIG SCH ×2 (05:05→11:04)
[2018-05-12 07:50] LABS: Baso # (Auto) 0.1 th/mm3 (0.0-0.2); Baso % (Auto) 1.1 % (0.0-2.0); Eos # (Auto) 0.2 th/mm3 (0.0-0.4); Eos % (Auto) 3.7 % (0.0-4.0); Hematocrit 35.7 % (39.0-51.0); Hemoglobin 12.1 gm/dL (13.0-17.0); Lymph # (Auto) 1.4 th/mm3 (1.0-4.8); Lymph % (Auto) 22.7 % (9.0-44.0); Mean Corpuscular HGB Conc 34.1 % (32.0-36.0); Mean Corpuscular Hemoglobin 30.2 pg (27.0-34.0); Mean Corpuscular Volume 88.6 fL (80.0-100.0); Mean Platelet Volume 7.2 fL (7.0-11.0); Mono # (Auto) 0.5 th/mm3 (0.0-0.9); Mono % (Auto) 7.4 % (0.0-8.0); Neut # (Auto) 4.1 th/mm3 (1.8-7.7); Neut % (Auto) 65.1 % (16.0-70.0); Platelet Count 257 th/mm3 (150-450); Red Blood Count 4.02 mil/mm3 (4.50-5.90); White Blood Count 6.3 th/mm3 (4.0-11.0)
[2018-05-12 08:09] LABS: Calcium 8.8 mg/dL (8.5-10.1); Carbon Dioxide 25.7 meq/L (21.0-32.0); Potassium 3.9 meq/L (3.5-5.1)
[2018-05-12] MEDS: Vancomycin Inj 2,000 MG in Sodium Chlor 0.9% Inj 500 ML IV.SIG SCH (08:16)
[2018-05-12] MEDS: Metoprolol Tartrate 50 MG Tablet PO SCH ×2 (08:17→21:10)
[2018-05-12] MEDS: Pregabalin 75 MG Capsule PO SCH ×2 (08:17→21:11)
[2018-05-12] MEDS: lamoTRIgine 25 MG TABLET PO SCH ×2 (08:17→21:10)
[2018-05-12] MEDS: Sodium Chloride 0.9% 2 ML Flush BID IV.FLUSH SCH ×2 (08:20→21:12)
[2018-05-12] MEDS: Allopurinol 300 MG Tablet PO SCH (08:20)
--- NOTE | 2018-05-12 08:21 | P.PNIM ---
Subjective Interval history: Pt underwent right 2nd digit proximal phalanx bone biopsy on 05/11/18. Pt without any new complaints Physical Exam Vital signs: Vital Signs 05/11/18 12:00 05/11/18 15:59 05/11/18 19:54 Temperature 97.9 F 98.3 F 97.7 F Pulse Rate 47 L 63 65 Respiratory Rate 18 18 19 Blood Pressure 99/57 L 108/57 L 134/54 L Pulse Oximetry 95 97 97 05/12/18 00:00 05/12/18 04:00 Temperature 97.9 F 97.9 F Pulse Rate 115 H 53 L Respiratory Rate 18 20 Blood Pressure 154/77 H 117/68 Pulse Oximetry 94 L 94 L Intake & Output 05/11/18 05/12/18 05/12/18 18:59 06:59 18:59 Intake Total 2236 / 2236 1050 / 1050 50 / 50 Balance 2236 / 2236 1050 / 1050 50 / 50 Intake: IV 1276 / 1276 1050 / 1050 50 / 50 NS Inj 1,000 ML @ 75 mls/hr IV. 656 / 656 1000 / 1000 CONT .[id number] [facility] Rx#:[id number] Zosyn 3.375 GM Premix 50 ML @ 100 / 100 50 / 50 50 / 50 100 mls/hr IV.SIG Q6H [facility] Rx#: [id number] Vancomycin Inj 2,000 MG In NS 520 / 520 Inj 500 ML @ 260 mls/hr IV.SIG Q18H [facility] Rx#:[id number] Oral 960 / 960 Other: # Voids 4 Date of Last Bowel Movement 05/10/18 Narrative: General: NAD, AAOx3 Heart: Regular Lung: CTA bilaterally Abd: +BS, soft ND/NT Ext: Right second toe swelling/redness/medial ulceration with dressing intact, judy foot deformities noted bilaterally Results - Labs CBC & Chem 7: 05/12/18 06:28 05/12/18 06:28 Laboratory Results - last 24 hr 05/11/18 05/12/18 05/12/18 07:21 06:28 06:28 WBC 6.3 RBC 4.02 L Hgb 12.1 L Hct 35.7 L MCV 88.6 MCH 30.2 MCHC 34.1 RDW 14.0 Plt Count 257 MPV 7.2 Neut % (Auto) 65.1 Lymph % (Auto) 22.7 [place] % (Auto) 7.4 Eos % (Auto) 3.7 Baso % (Auto) 1.1 Neut # (Auto) 4.1 Lymph # (Auto) 1.4 [place] # (Auto) 0.5 Eos # (Auto) 0.2 Baso # (Auto) 0.1 WBC Differential . Differential Comment Auto diff final Sodium 143 145 Potassium 4.1 3.9 Chloride 109 H 110 H Carbon Dioxide 28.1 25.7 Anion Gap 6 9 BUN 14 12 Creatinine 1.17 1.12 Estimated GFR 61 L 64 L Random Glucose 93 89 Calcium 8.9 8.8 Microbiology 05/09/18 15:20 Blood - Peripheral Aerobic Blood Culture - Preliminary No growth in 2 days 05/09/18 15:20 Blood - Peripheral Anaerobic Blood Culture - Preliminary No growth in 2 days 05/09/18 15:25 Blood - Peripheral Aerobic Blood Culture - Preliminary No growth in 2 days 05/09/18 15:25 Blood - Peripheral Anaerobic Blood Culture - Preliminary No growth in 2 days 05/09/18 17:00 Abscess - Toe Gram Stain - Final 05/09/18 17:00 Abscess - Toe Wound Culture - Preliminary Staphylococcus aureus - Imaging Foot MRI 05/09/18 15:19 CONCLUSION: 1. Diffuse soft tissue inflammatory changes of the second toe. Acute on chronic appearing destructive arthropathy at the proximal interphalangeal joint. An infectious etiology would be in the differential. If the soft tissues or joint are infected, there are signal changes of the proximal and middle phalanges consistent with osteomyelitis. 2. Severe arch collapse. 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 3. Peritendinitis and enthesopathic changes of the Achilles insertion. No tear. Foot X-Ray 05/09/18 15:21 CONCLUSION: Charcot foot with Lisfranc fracture as detailed above. Assessment and Plan - Assessment (1) Osteomyelitis Code(s): M86.9 - Osteomyelitis, unspecified Status: Acute Plan: 1. Right second toe cellulitis and most likely osteomyelitis. cellulitis extending to dorsal foot 2. chronic bony foot deformities and peripheral neuropathy. 3. gout 4. htn 5. bph 6. hyperlipidemia - Appreciate consult from podiatry - MRI right foot (05/09/18) 1. Diffuse soft tissue inflammatory changes of the second toe. Acute on chronic appearing destructive arthropathy at the proximal interphalangeal joint. An infectious etiology would be in the differential. If the soft tissues or joint are infected, there are signal changes of the proximal and middle phalanges consistent with osteomyelitis. 2. Severe arch collapse. 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 3. Peritendinitis and enthesopathic changes of the Achilles insertion. No tear. - Right Foot X-Ray:Charcot foot with Lisfranc fracture as detailed above. - Appreciate input from podiatry - Initial wound culture with MSSA and MRSA - Pt underwent right 2nd digit proximal phalanx bone biopsy on 05/11/[address] Yu. - Culture is pending. - Pathology is pending. - Stop zosyn and cont vancomycin, pharmacy to dose vanco - Pt will need PICC line placement and plan for approx 6 weeks of IV Abx but will need results of bone biopsy/culture to help determine appropriate Abx for discharge. - cont home meds as appropriate - CBC and BMP in AM - DVT prophylaxis. The exam, history, and the medical decision-making described in the above note were completed with the assistance of the mid-level provider. I reviewed and agree with the findings presented. I attest that I had a [id number] encounter with the patient on the same day, and personally performed and documented my assessment and findings in the medical record. 2nd toe cellulitis/osteo. s/p bone bx and pending. superficial ulceration cx mssa/mrsa. dc zosyn and dc ivf. cont vanco after bone bx result plan for picc and 6weeks iv abx. No amputation recommended by podiatry. (2) Cellulitis of foot Code(s): L03.119 - Cellulitis of unspecified part of limb Status: Acute (3) Neuropathy Code(s): G62.9 - Polyneuropathy, unspecified Status: Chronic (1) Osteomyelitis Qualifiers: Osteomyelitis type: unspecified type Osteomyelitis location: foot Laterality : right Qualified Code(s): M86.9 - Osteomyelitis, unspecified
[2018-05-12] MEDS ORDERED: Vancomycin Consult Pharmacy OTHER PRN (13:03)
[2018-05-13] MEDS ORDERED: Pharmacy Ordered Lab Info OTHER ONE (01:45)
[2018-05-13] MEDS ORDERED: Vancomycin Inj 1,800 MG in Sodium Chlor 0.9% Inj 500 ML IV.SIG SCH (02:00)
[2018-05-13] MEDS: Vancomycin Inj 2,000 MG in Sodium Chlor 0.9% Inj 500 ML IV.SIG SCH (03:40)
[2018-05-13] MEDS: Sodium Chloride 0.9% 2 ML Flush BID IV.FLUSH SCH ×2 (08:36→21:28)
[2018-05-13] MEDS: Metoprolol Tartrate 50 MG Tablet PO SCH ×2 (08:36→21:28)
[2018-05-13] MEDS: Allopurinol 300 MG Tablet PO SCH (08:36)
[2018-05-13] MEDS: Pregabalin 75 MG Capsule PO SCH ×2 (08:36→21:28)
[2018-05-13] MEDS: lamoTRIgine 25 MG TABLET PO SCH ×2 (08:36→21:28)
--- NOTE | 2018-05-13 11:49 | P.PNIM ---
Subjective Interval history: Pt was having diarrhea yesterday and had several episodes No diarrhea since then today Pt tolerating oral intake Denies any abd pain, fevers, chills, nausea or vomiting Physical Exam Vital signs: Vital Signs 05/12/18 12:00 05/12/18 16:00 05/12/18 20:00 Temperature 97.3 F L 97.4 F L 97.8 F Pulse Rate 52 L 47 L 56 L Respiratory Rate 17 17 20 Blood Pressure 124/60 130/70 130/64 Pulse Oximetry 96 97 97 05/12/18 23:56 05/13/18 08:00 Temperature 97.9 F 97.6 F Pulse Rate 52 L 55 L Respiratory Rate 19 17 Blood Pressure 133/72 129/63 Pulse Oximetry 94 L 94 L Intake & Output 05/12/18 05/13/18 05/13/18 18:59 06:59 18:59 Intake Total 2853 / 2853 1280 / 1280 Balance 2853 / 2853 1280 / 1280 Weight 129 kg Intake: IV 1425 / 1425 520 / 520 NS Inj 1,000 ML @ 75 mls/hr IV. 855 / 855 CONT .[id number] [facility] Rx#:[id number] Zosyn 3.375 GM Premix 50 ML @ 50 / 50 100 mls/hr IV.SIG Q6H [facility] Rx#: [id number] Vancomycin Inj 2,000 MG In NS 520 / 520 520 / 520 Inj 500 ML @ 260 mls/hr IV.SIG Q18H [facility] Rx#:[id number] Oral 1428 / 1428 760 / 760 Other: # Voids 3 2 Date of Last Bowel Movement 05/12/18 05/12/18 # Bowel Movements 4 Narrative: General: NAD, AAOx3 Heart: Regular Lung: CTA bilaterally Abd: +BS, soft ND/NT Ext: Right second toe swelling/redness improving, medial ulceration with dressing intact, judy foot deformities noted bilaterally Results - Labs CBC & Chem 7: 05/12/18 06:28 05/12/18 06:28 Laboratory Results - last 24 hr 05/12/18 05/13/18 18:11 03:20 Stool C.difficile Ag Positive H Stool C.difficile Toxin Negative Stl C.difficile DNA Amp Positive H St C. diff Tox Epid 027 Negative Vancomycin Trough 17.0 H Microbiology 05/09/18 15:20 Blood - Peripheral Aerobic Blood Culture - Preliminary No growth in 4 days 05/09/18 15:20 Blood - Peripheral Anaerobic Blood Culture - Preliminary No growth in 4 days 05/09/18 15:25 Blood - Peripheral Aerobic Blood Culture - Preliminary No growth in 4 days 05/09/18 15:25 Blood - Peripheral Anaerobic Blood Culture - Preliminary No growth in 4 days 05/11/18 15:50 Tissue - Toe Gram Stain - Final 05/11/18 15:50 Tissue - Toe Wound Culture - Preliminary No growth in 48 hours 05/09/18 17:00 Abscess - Toe Gram Stain - Final 05/09/18 17:00 Abscess - Toe Wound Culture - Final Staphylococcus aureus S. aureus MRSA - Imaging Foot MRI 05/09/18 15:19 CONCLUSION: 1. Diffuse soft tissue inflammatory changes of the second toe. Acute on chronic appearing destructive arthropathy at the proximal interphalangeal joint. An infectious etiology would be in the differential. If the soft tissues or joint are infected, there are signal changes of the proximal and middle phalanges consistent with osteomyelitis. 2. Severe arch collapse. 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 3. Peritendinitis and enthesopathic changes of the Achilles insertion. No tear. Foot X-Ray 05/09/18 15:21 CONCLUSION: Charcot foot with Lisfranc fracture as detailed above. Assessment and Plan - Assessment (1) Osteomyelitis Code(s): M86.9 - Osteomyelitis, unspecified Status: Acute Plan: 1. Right second toe cellulitis and most likely osteomyelitis. cellulitis extending to dorsal foot 2. chronic bony foot deformities and peripheral neuropathy. 3. gout 4. htn 5. bph 6. hyperlipidemia 7. C. diff infection - Appreciate consult from podiatry - MRI right foot (05/09/18) 1. Diffuse soft tissue inflammatory changes of the second toe. Acute on chronic appearing destructive arthropathy at the proximal interphalangeal joint. An infectious etiology would be in the differential. If the soft tissues or joint are infected, there are signal changes of the proximal and middle phalanges consistent with osteomyelitis. 2. Severe arch collapse. 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 3. Peritendinitis and enthesopathic changes of the Achilles insertion. No tear. - Right Foot X-Ray:Charcot foot with Lisfranc fracture as detailed above. - Appreciate input from podiatry - Initial wound culture with MSSA and MRSA - Pt underwent right 2nd digit proximal phalanx bone biopsy on 05/11/[address] Yu. - Culture with NGTD - Pathology is pending. - Stop zosyn and cont vancomycin, pharmacy to dose vanco - Pt will need PICC line placement and plan for approx 6 weeks of IV Abx but will need results of bone biopsy/culture to help determine appropriate Abx for discharge. - Pt had diarrhea on 05/12 and stool tested positive for C. diff - Oral Vancomycin 125mg QID added to regimen for the C. diff infection. - cont home meds as appropriate - CBC and BMP in AM - DVT prophylaxis. The exam, history, and the medical decision-making described in the above note were completed with the assistance of the mid-level provider. I reviewed and agree with the findings presented. I attest that I had a [id number] encounter with the patient on the same day, and personally performed and documented my assessment and findings in the medical record. osteo toe and forefoot cellulitis. mssa/mrsa superficial cx. bone bx pending . vanco iv cdiff colitis. off zosyn. po vanco. (2) Cellulitis of foot Code(s): L03.119 - Cellulitis of unspecified part of limb Status: Acute (3) Neuropathy Code(s): G62.9 - Polyneuropathy, unspecified Status: Chronic (1) Osteomyelitis Qualifiers: Osteomyelitis type: unspecified type Osteomyelitis location: foot Laterality : right Qualified Code(s): M86.9 - Osteomyelitis, unspecified
[2018-05-13] MEDS: Lactobacillus Acidophilus/L. Spores Tablet PO SCH ×2 (13:18→18:30)
[2018-05-14] MEDS: Vancomycin Inj 2,000 MG in Sodium Chlor 0.9% Inj 500 ML IV.SIG SCH (04:25)
[2018-05-14] MEDS: lamoTRIgine 25 MG TABLET PO SCH ×2 (08:42→21:06)
[2018-05-14] MEDS: Allopurinol 300 MG Tablet PO SCH (08:42)
[2018-05-14] MEDS: Metoprolol Tartrate 50 MG Tablet PO SCH ×2 (08:42→21:07)
[2018-05-14] MEDS: Lactobacillus Acidophilus/L. Spores Tablet PO SCH ×3 (08:42→17:01)
[2018-05-14] MEDS: Pregabalin 75 MG Capsule PO SCH ×2 (08:42→21:06)
[2018-05-14] MEDS: Sodium Chloride 0.9% 2 ML Flush BID IV.FLUSH SCH ×2 (08:43→21:07)
--- NOTE | 2018-05-14 09:03 | P.PNIM ---
Subjective Interval history: Pt with low grade fevers that began yesterday evening No new complaints otherwise Pt with some loose stools yesterday afternoon/evening Physical Exam Vital signs: Vital Signs 05/13/18 12:00 05/13/18 16:00 05/13/18 20:00 Temperature 98 F 99.9 F H 100.2 F H Pulse Rate 65 67 72 Respiratory Rate 17 17 18 Blood Pressure 120/58 L 133/79 135/60 Pulse Oximetry 95 94 L 95 05/14/18 00:00 05/14/18 08:00 Temperature 100.8 F H 99.2 F Pulse Rate 63 63 Respiratory Rate 18 18 Blood Pressure 119/63 118/62 Pulse Oximetry 96 95 Intake & Output 05/13/18 05/14/18 05/14/18 18:59 06:59 18:59 Intake Total 1080 / 1080 760 / 760 Balance 1080 / 1080 760 / 760 Weight 126.6 kg Intake: IV 520 / 520 Vancomycin Inj 2,000 MG In NS 520 / 520 Inj 500 ML @ 260 mls/hr IV.SIG Q24H [facility] Rx#:[id number] Oral 1080 / 1080 240 / 240 Other: # Voids 4 3 Date of Last Bowel Movement 05/12/18 # Bowel Movements 3 Narrative: General: NAD, AAOx3 Heart: Regular Lung: CTA bilaterally Abd: +BS, soft ND/NT Ext: Right second toe swelling/redness improving, medial ulceration with dressing intact, judy foot deformities noted bilaterally Results - Labs CBC & Chem 7: 05/12/18 06:28 05/12/18 06:28 Laboratory Results - last 24 hr 05/12/18 18:11 Stool C.difficile Ag Positive H Stool C.difficile Toxin Negative Microbiology 05/11/18 15:50 Tissue - Toe Gram Stain - Final 05/11/18 15:50 Tissue - Toe Wound Culture - Final No growth in 72 hours (aerobically and anaerobically ) 05/09/18 15:20 Blood - Peripheral Aerobic Blood Culture - Preliminary No growth in 4 days 05/09/18 15:20 Blood - Peripheral Anaerobic Blood Culture - Preliminary No growth in 4 days 05/09/18 15:25 Blood - Peripheral Aerobic Blood Culture - Preliminary No growth in 4 days 05/09/18 15:25 Blood - Peripheral Anaerobic Blood Culture - Preliminary No growth in 4 days Assessment and Plan - Assessment (1) Osteomyelitis Code(s): M86.9 - Osteomyelitis, unspecified Status: Acute Plan: 1. Right second toe cellulitis and most likely osteomyelitis. cellulitis extending to dorsal foot 2. chronic bony foot deformities and peripheral neuropathy. 3. gout 4. htn 5. bph 6. hyperlipidemia 7. C. diff infection - Appreciate consult from podiatry - MRI right foot (05/09/18) 1. Diffuse soft tissue inflammatory changes of the second toe. Acute on chronic appearing destructive arthropathy at the proximal interphalangeal joint. An infectious etiology would be in the differential. If the soft tissues or joint are infected, there are signal changes of the proximal and middle phalanges consistent with osteomyelitis. 2. Severe arch collapse. 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 3. Peritendinitis and enthesopathic changes of the Achilles insertion. No tear. - Right Foot X-Ray:Charcot foot with Lisfranc fracture as detailed above. - Appreciate input from podiatry - Superficial wound culture with MSSA and MRSA - Pt underwent right 2nd digit proximal phalanx bone biopsy on 05/11/[address] Yu. - Culture with NGTD - Pathology is with NO acute osteomyelitis. - Zosyn stopped on 05/12 and cont vancomycin, pharmacy to dose vanco - Consult infectious disease for recommendations regarding antibiotics for discharge. Pt with clinical evidence and imaging indicating osteomyelitis but bone biopsy was negative for acute osteo and pt with C. diff - Pt had diarrhea on 05/12 and stool tested positive for C. diff - Oral Vancomycin 125mg QID added to regimen for the C. diff infection. - cont home meds as appropriate - CBC and BMP in AM - DVT prophylaxis. The exam, history, and the medical decision-making described in the above note were completed with the assistance of the mid-level provider. I reviewed and agree with the findings presented. I attest that I had a [id number] encounter with the patient on the same day, and personally performed and documented my assessment and findings in the medical record. right dorsal foot cellulitis and second digit cellulitis much improved on vanco. ulceration noted pt had superficial cx's taken from the nondraining ulceration mssa/mrsa. zosyn stopped. cdiff positive after 3 loose stools and on po vanco now. fever last night. podiatry not advising amputation. mri concern for osteo. bone bx and cx negative for acute osteo. need to get ID opinion to decide if we should send on 6weeks iv vanco or need more proof of osteo? (2) Cellulitis of foot Code(s): L03.119 - Cellulitis of unspecified part of limb Status: Acute (3) Neuropathy Code(s): G62.9 - Polyneuropathy, unspecified Status: Chronic (1) Osteomyelitis Qualifiers: Osteomyelitis type: unspecified type Osteomyelitis location: foot Laterality : right Qualified Code(s): M86.9 - Osteomyelitis, unspecified
--- NOTE | 2018-05-14 13:52 | P.PNPOD ---
Subjective Interval history: Patient seen bedside resting comfortably with no concerns. States he feels his right second digit has improved. He is hopeful he can be discharged with a PICC line and follow-up with Dr. Castillo. Physical Exam Vital signs: Vital Signs 05/13/18 16:00 05/13/18 20:00 05/14/18 00:00 Temperature 99.9 F H 100.2 F H 100.8 F H Pulse Rate 67 72 63 Respiratory Rate 17 18 18 Blood Pressure 133/79 135/60 119/63 Pulse Oximetry 94 L 95 96 05/14/18 08:00 05/14/18 12:00 Temperature 99.2 F 98.6 F Pulse Rate 63 65 Respiratory Rate 18 18 Blood Pressure 118/62 115/56 L Pulse Oximetry 95 94 L Intake & Output 05/13/18 05/14/18 05/14/18 18:59 06:59 18:59 Intake Total 1080 / 1080 760 / 760 Balance 1080 / 1080 760 / 760 Weight 126.6 kg Intake: IV 520 / 520 Vancomycin Inj 2,000 MG In NS 520 / 520 Inj 500 ML @ 260 mls/hr IV.SIG Q24H [facility] Rx#:[id number] Oral 1080 / 1080 240 / 240 Other: # Voids 4 3 Date of Last Bowel Movement 05/12/18 # Bowel Movements 3 Narrative: Erythema and edema noted to right second digit with medial ulceration with no hyperkeratotic borders and granular base. Bulbous appearance to right second digit. Medications and Allergies Active Medications: Active Medications Acetaminophen (Tylenol) 650 mg PO Q4H PRN PRN Reason: fever Allopurinol (Zyloprim) 300 mg PO DAILY [facility] Last Admin: 05/14/18 08:42 Dose: 300 mg Vancomycin HCl 2,000 mg/ (Sodium Chloride) 520 mls @ 260 mls/hr IV.SIG Q24H [facility] Last Infusion: 05/14/18 06:25 Dose: Infused Lactobacillus Acidophilus (Lactinex) 1 tab PO TID [facility] Last Admin: 05/14/18 12:31 Dose: 1 tab Lamotrigine (Lamictal) 50 mg PO BID [facility] Last Admin: 05/14/18 08:42 Dose: 50 mg Metoprolol Tartrate (Lopressor) 50 mg PO BID [facility] Last Admin: 05/14/18 08:42 Dose: 50 mg Miscellaneous Information ([facility] Ordered Lab Info) 0 each OTHER ONCE ONE Stop: 05/16/18 03:46 Pharmacy Profile Note (Vancomycin Consult Pharmacy) 1 each OTHER UNSCH PRN PRN Reason: Pharmacy to dose Pravastatin Sodium (Pravachol) 40 mg PO BID [facility] Last Admin: 05/14/18 08:42 Dose: 40 mg Pregabalin (Lyrica) 75 mg PO BID [facility] Last Admin: 05/14/18 08:42 Dose: 75 mg Silver Sulfadiazine (Silvadene 1% Cream (50 Gm)) 1 applicatio TOPICAL DAILY [facility] Sodium Chloride (Ns Flush) 2 ml IV.FLUSH BID [facility] Last Admin: 05/14/18 08:43 Dose: 2 ml Sodium Chloride (Ns Flush) 2 ml IV.FLUSH PRN PRN PRN Reason: FLUSH AFTER USING IV ACCESS Tamsulosin HCl (Flomax) 0.4 mg PO DAILY [facility] Last Admin: 05/14/18 08:42 Dose: 0.4 mg Tramadol HCl (Ultram) 50 mg PO BID PRN PRN Reason: PAIN 1-10 Vancomycin HCl (Vancomycin Po) 125 mg PO QID [facility] Last Admin: 05/14/18 12:31 Dose: 125 mg Allergies Allergy/AdvReac Type Severity Reaction Status Date / Time No Known Allergies Allergy Verified 04/25/18 01:08 Home Medications Medication Instructions Recorded Confirmed Type acyclovir 400 mg PO Q4H 04/25/18 05/09/18 History allopurinol 300 mg PO DAILY 04/25/18 05/09/18 History aspirin [Aspirin Low Dose] 81 mg PO DAILY 04/25/18 05/09/18 History lamotrigine 50 mg PO BID 04/25/18 05/09/18 History lovastatin 40 mg PO BID 04/25/18 05/09/18 History metoprolol tartrate 50 mg PO BID 04/25/18 05/09/18 History pregabalin [Lyrica] 75 mg PO BID 04/25/18 05/09/18 History tamsulosin 0.4 mg PO DAILY 04/25/18 05/09/18 History tramadol 50 mg PO BID PRN 04/25/18 05/09/18 History ciprofloxacin HCl 75 mg PO BID 05/09/18 05/09/18 History Results - Labs CBC & Chem 7: 05/12/18 06:28 05/12/18 06:28 Microbiology 05/09/18 15:20 Blood - Peripheral Aerobic Blood Culture - Final No growth in 5 days 05/09/18 15:20 Blood - Peripheral Anaerobic Blood Culture - Final No growth in 5 days 05/09/18 15:25 Blood - Peripheral Aerobic Blood Culture - Final No growth in 5 days 05/09/18 15:25 Blood - Peripheral Anaerobic Blood Culture - Final No growth in 5 days 05/11/18 15:50 Tissue - Toe Gram Stain - Final 05/11/18 15:50 Tissue - Toe Wound Culture - Final No growth in 72 hours (aerobically and anaerobically ) Assessment and Plan - Plan 77-year-old male with right second digit infection Patient examined and evaluated with all questions answered Patient at this time would like to continue with conservative care and salvage efforts for right second digit Continue with local wound care daily Apply Silvadene and DSD Patient to follow-up with Dr. Castillo upon discharge Ultimately toe may need to be amputated as there is continued erythema and edema and because of ulceration is dislocation noted to proximal interphalangeal joint The ulceration most likely will continue secondary to bony pressure Encourage continued discussion of digital amputation to right second digit Dr. Castillo to assume care patient is still in house 05/16
[2018-05-15] MEDS: Vancomycin Inj 2,000 MG in Sodium Chlor 0.9% Inj 500 ML IV.SIG SCH (03:55)
[2018-05-15 05:56] LABS: Baso # (Auto) 0.1 th/mm3 (0.0-0.2); Baso % (Auto) 0.7 % (0.0-2.0); Eos # (Auto) 0.2 th/mm3 (0.0-0.4); Eos % (Auto) 1.8 % (0.0-4.0); Hematocrit 36.6 % (39.0-51.0); Hemoglobin 12.7 gm/dL (13.0-17.0); Lymph # (Auto) 1.3 th/mm3 (1.0-4.8); Lymph % (Auto) 13.3 % (9.0-44.0); Mean Corpuscular HGB Conc 34.6 % (32.0-36.0); Mean Corpuscular Volume 86.7 fL (80.0-100.0); Mean Platelet Volume 6.8 fL (7.0-11.0); Mono # (Auto) 0.8 th/mm3 (0.0-0.9); Mono % (Auto) 7.9 % (0.0-8.0); Neut # (Auto) 7.7 th/mm3 (1.8-7.7); Neut % (Auto) 76.3 % (16.0-70.0); Platelet Count 232 th/mm3 (150-450); Red Blood Count 4.21 mil/mm3 (4.50-5.90); Red Cell Distribution Width 14.5 % (11.6-17.2); White Blood Count 10.1 th/mm3 (4.0-11.0)
[2018-05-15 06:17] LABS: Calcium 9.1 mg/dL (8.5-10.1); Carbon Dioxide 25.8 meq/L (21.0-32.0); Potassium 3.8 meq/L (3.5-5.1)
[2018-05-15] MEDS: Pregabalin 75 MG Capsule PO SCH ×2 (08:34→21:43)
[2018-05-15] MEDS: Metoprolol Tartrate 50 MG Tablet PO SCH ×2 (08:34→21:43)
[2018-05-15] MEDS: lamoTRIgine 25 MG TABLET PO SCH ×2 (08:34→21:43)
[2018-05-15] MEDS: Lactobacillus Acidophilus/L. Spores Tablet PO SCH ×3 (08:35→17:46)
[2018-05-15] MEDS: Allopurinol 300 MG Tablet PO SCH (08:35)
[2018-05-15] MEDS: Sodium Chloride 0.9% 2 ML Flush BID IV.FLUSH SCH ×2 (08:45→21:44)
--- NOTE | 2018-05-15 08:45 | P.PNIM ---
Subjective Interval history: No new complaints No further diarrhea since 05/13/18. He had 2 soft BMs yesterday and one so far today He is anxious for discharge. Physical Exam Vital signs: Vital Signs 05/14/18 12:00 05/14/18 16:00 05/14/18 20:00 Temperature 98.6 F 100.2 F H 98.3 F Pulse Rate 65 65 71 Respiratory Rate 18 18 20 Blood Pressure 115/56 L 115/58 L 121/66 Pulse Oximetry 94 L 95 92 L 05/15/18 00:00 05/15/18 04:00 05/15/18 08:00 Temperature 98.2 F 97.7 F 98.9 F Pulse Rate 65 74 71 Respiratory Rate 18 16 19 Blood Pressure 108/58 L 130/65 134/72 Pulse Oximetry 95 97 91 L Intake & Output 05/14/18 05/15/18 05/15/18 18:59 06:59 18:59 Intake Total 1200 / 1200 1240 / 1240 Balance 1200 / 1200 1240 / 1240 Weight 126.4 kg Intake: IV 520 / 520 Vancomycin Inj 2,000 MG In NS 520 / 520 Inj 500 ML @ 260 mls/hr IV.SIG Q24H [facility] Rx#:[id number] Oral 1200 / 1200 720 / 720 Other: # Voids 3 2 Date of Last Bowel Movement 05/14/18 Narrative: General: NAD, AAOx3 Heart: Regular Lung: CTA bilaterally Abd: +BS, soft ND/NT Ext: Right second toe swelling/redness improving, medial ulceration with dressing intact, judy foot deformities noted bilaterally Results - Labs CBC & Chem 7: 05/15/18 05:32 05/15/18 05:32 Laboratory Results - last 24 hr 05/15/18 05/15/18 05:32 05:32 WBC 10.1 RBC 4.21 L Hgb 12.7 L Hct 36.6 L MCV 86.7 MCH 30.0 MCHC 34.6 RDW 14.5 Plt Count 232 MPV 6.8 L Neut % (Auto) 76.3 H Lymph % (Auto) 13.3 Saunders % (Auto) 7.9 Eos % (Auto) 1.8 Baso % (Auto) 0.7 Neut # (Auto) 7.7 Lymph # (Auto) 1.3 Saunders # (Auto) 0.8 Eos # (Auto) 0.2 Baso # (Auto) 0.1 WBC Differential . Differential Comment Auto diff final Sodium 140 Potassium 3.8 Chloride 104 Carbon Dioxide 25.8 Anion Gap 10 BUN 14 Creatinine 0.94 Estimated GFR 78 L Random Glucose 97 Calcium 9.1 Microbiology 05/09/18 15:20 Blood - Peripheral Aerobic Blood Culture - Final No growth in 5 days 05/09/18 15:20 Blood - Peripheral Anaerobic Blood Culture - Final No growth in 5 days 05/09/18 15:25 Blood - Peripheral Aerobic Blood Culture - Final No growth in 5 days 05/09/18 15:25 Blood - Peripheral Anaerobic Blood Culture - Final No growth in 5 days 05/11/18 15:50 Tissue - Toe Gram Stain - Final 05/11/18 15:50 Tissue - Toe Wound Culture - Final No growth in 72 hours (aerobically and anaerobically ) Assessment and Plan - Assessment (1) Osteomyelitis Code(s): M86.9 - Osteomyelitis, unspecified Status: Acute Plan: 1. Right second toe cellulitis and most likely osteomyelitis. cellulitis extending to dorsal foot 2. chronic bony foot deformities and peripheral neuropathy. 3. gout 4. htn 5. bph 6. hyperlipidemia 7. C. diff infection - Appreciate consult from podiatry - MRI right foot (05/09/18) 1. Diffuse soft tissue inflammatory changes of the second toe. Acute on chronic appearing destructive arthropathy at the proximal interphalangeal joint. An infectious etiology would be in the differential. If the soft tissues or joint are infected, there are signal changes of the proximal and middle phalanges consistent with osteomyelitis. 2. Severe arch collapse. 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 3. Peritendinitis and enthesopathic changes of the Achilles insertion. No tear. - Right Foot X-Ray:Charcot foot with Lisfranc fracture as detailed above. - Appreciate input from podiatry - Superficial wound culture with MSSA and MRSA - Pt underwent right 2nd digit proximal phalanx bone biopsy on 05/11/[address] Yu. - Deep culture with NGTD - Pathology is with NO acute osteomyelitis. - Zosyn stopped on 05/12 and cont vancomycin, pharmacy to dose vanco - Podiatry recommending: Continue with local wound care daily, apply Silvadene and DSD, patient to follow-up with Dr. Castillo upon discharge - Podiatry report indicated that ultimately the toe may need to be amputated as there is continued erythema and edema and because of ulceration is dislocation noted to proximal interphalangeal joint - Consult infectious disease for recommendations regarding antibiotics for discharge. Pt with clinical evidence and imaging indicating osteomyelitis but bone biopsy was negative for acute osteo and pt with C. diff. Need help to decide if we should send on 6 weeks iv vanco or need more proof of osteo? - Pt had diarrhea on 05/12 and stool tested positive for C. diff - Oral Vancomycin 125mg QID added to regimen for the C. diff infection. - cont home meds as appropriate - CBC and BMP in AM - DVT prophylaxis. (2) Cellulitis of foot Code(s): L03.119 - Cellulitis of unspecified part of limb Status: Acute (3) Neuropathy Code(s): G62.9 - Polyneuropathy, unspecified Status: Chronic (1) Osteomyelitis Qualifiers: Osteomyelitis type: unspecified type Osteomyelitis location: foot Laterality : right Qualified Code(s): M86.9 - Osteomyelitis, unspecified
--- NOTE | 2018-05-15 10:21 | P.CONID ---
History of Present Illness Service: ID Consult date: 05/15/18 Requesting Physician: Cristina Hdz Reason for Consult: osteomyelitis on imaging, biopsy negative Primary Care Provider: David Santos MD Family Provider: David Santos MD History of Present Illness: 77 yo male with no h/o diabetes developped maceration on his R 2nd toe for about 2 mos Gradually it was worsening and formed an ulcer as well as the toe became swollen and red Pt was placed on cipro as o/p No systemic symptoms No fever or leukocytosis MRI was done and showed diffuse soft tissue inflammatory changes of the second toe and signal changes of the proximal and middle phalanges consistent with osteomyelitis. His superficial cultures were positive for MSSA and MRSA and his bone culture was negative path was negative for osteomyelitis but showed bone remodelling Pt is on vancomycin IV for his osteomyelitis Pt developpped diarrhea since wednesday 1-3 loose BMs /day C.diff was positivie, pt was started on PO vancomycin Review of Systems All other systems reviewed negative except as stated in HPI PMFSH - History History Provided By: Patient - Medical History Medical History: Medical History (Last Reviewed 05/15/18 @ 11:28 by Jackie Tang MD) Neuropathy (Chronic) Prostate disorder (Acute) Hypertension (Acute) Gout (Acute) - Surgical History Surgical History: Surgical History (Last Reviewed 05/15/18 @ 11:28 by Jackie Tang MD) H/O knee surgery History of appendectomy History of tonsillectomy - Family History Family History: Family History (Last Updated 05/15/18 @ 11:28 by Jackie Tang MD) Other Family history non-contributory - Social History I have reviewed the patient's Social History: Yes - Tobacco History Second Hand Smoke Exposure: No Tobacco Use In Past 30 Days: No Smoking Status: Never smoker Tobacco Type: Pipe, Cigars - Alcohol History How Often Do You Have a Drink Containing Alcohol: Monthly or less - Substance Use History Substance History: No History of Abuse - Travel History Recent Travel in the [place] Within the Last 8 Weeks: No Recent Travel Out of the Country Within the Last 8 Weeks: No - Immunization History Tetanus Immunization: Unsure Hx Influenza Vaccine This Season: No Medications and Allergies Active Medications: Active Medications Acetaminophen (Tylenol) 650 mg PO Q4H PRN PRN Reason: fever Last Admin: 05/14/18 15:55 Dose: 650 mg Allopurinol (Zyloprim) 300 mg PO DAILY [facility] Last Admin: 05/15/18 08:35 Dose: 300 mg Vancomycin HCl 2,000 mg/ (Sodium Chloride) 520 mls @ 260 mls/hr IV.SIG Q24H [facility] Last Infusion: 05/15/18 06:07 Dose: Infused Lactobacillus Acidophilus (Lactinex) 1 tab PO TID [facility] Last Admin: 05/15/18 08:35 Dose: 1 tab Lamotrigine (Lamictal) 50 mg PO BID [facility] Last Admin: 05/15/18 08:34 Dose: 50 mg Metoprolol Tartrate (Lopressor) 50 mg PO BID [facility] Last Admin: 05/15/18 08:34 Dose: 50 mg Miscellaneous Information ([facility] Ordered Lab Info) 0 each OTHER ONCE ONE Stop: 05/16/18 03:46 Pharmacy Profile Note (Vancomycin Consult Pharmacy) 1 each OTHER UNSCH PRN PRN Reason: Pharmacy to dose Pravastatin Sodium (Pravachol) 40 mg PO BID [facility] Last Admin: 05/15/18 08:35 Dose: 40 mg Pregabalin (Lyrica) 75 mg PO BID [facility] Last Admin: 05/15/18 08:34 Dose: 75 mg Silver Sulfadiazine (Silvadene 1% Cream (50 Gm)) 1 applicatio TOPICAL DAILY [facility] Last Admin: 05/15/18 08:37 Dose: 1 applicatio Sodium Chloride (Ns Flush) 2 ml IV.FLUSH BID [facility] Last Admin: 05/15/18 08:45 Dose: Not Given Sodium Chloride (Ns Flush) 2 ml IV.FLUSH PRN PRN PRN Reason: FLUSH AFTER USING IV ACCESS Tamsulosin HCl (Flomax) 0.4 mg PO DAILY [facility] Last Admin: 05/15/18 08:34 Dose: 0.4 mg Tramadol HCl (Ultram) 50 mg PO BID PRN PRN Reason: PAIN 1-10 Vancomycin HCl (Vancomycin Po) 125 mg PO QID [facility] Last Admin: 05/15/18 08:33 Dose: 125 mg Allergies Allergy/AdvReac Type Severity Reaction Status Date / Time No Known Allergies Allergy Verified 04/25/18 01:08 Home Medications Medication Instructions Recorded Confirmed Type acyclovir 400 mg PO Q4H 04/25/18 05/09/18 History allopurinol 300 mg PO DAILY 04/25/18 05/09/18 History aspirin [Aspirin Low Dose] 81 mg PO DAILY 04/25/18 05/09/18 History lamotrigine 50 mg PO BID 04/25/18 05/09/18 History lovastatin 40 mg PO BID 04/25/18 05/09/18 History metoprolol tartrate 50 mg PO BID 04/25/18 05/09/18 History pregabalin [Lyrica] 75 mg PO BID 04/25/18 05/09/18 History tamsulosin 0.4 mg PO DAILY 04/25/18 05/09/18 History tramadol 50 mg PO BID PRN 04/25/18 05/09/18 History ciprofloxacin HCl 75 mg PO BID 05/09/18 05/09/18 History Exam Vital signs: Vital Signs 05/14/18 12:00 05/14/18 16:00 05/14/18 20:00 Temperature 98.6 F 100.2 F H 98.3 F Pulse Rate 65 65 71 Respiratory Rate 18 18 20 Blood Pressure 115/56 L 115/58 L 121/66 Pulse Oximetry 94 L 95 92 L 05/15/18 00:00 05/15/18 04:00 05/15/18 08:00 Temperature 98.2 F 97.7 F 98.9 F Pulse Rate 65 74 71 Respiratory Rate 18 16 19 Blood Pressure 108/58 L 130/65 134/72 Pulse Oximetry 95 97 91 L Intake & Output 05/14/18 05/15/18 05/15/18 18:59 06:59 18:59 Intake Total 1200 / 1200 1240 / 1240 Balance 1200 / 1200 1240 / 1240 Weight 126.4 kg Intake: IV 520 / 520 Vancomycin Inj 2,000 MG In NS 520 / 520 Inj 500 ML @ 260 mls/hr IV.SIG Q24H [facility] Rx#:[id number] Oral 1200 / 1200 720 / 720 Other: # Voids 3 2 Date of Last Bowel Movement 05/14/18 - Constitutional no acute distress, obese - Routine HEENT Exam Head: Present: normocephalic, atraumatic Eye: Present: EOMI, PERRL ENT: Present: mucous membranes moist, oropharynx clear - Routine Neck Exam Present: supple. Absent: JVD - Routine Respiratory Exam Present: decreased breath sounds, CTA bilaterally - Routine Cardiovascular Exam Present: RRR, S1, S2. Absent: murmur, gallop, rubs - Routine Abdominal Exam Present: soft, normoactive bowel sounds. Absent: tenderness, distended, rigid, organomegaly, mass - Routine Extremities Exam Present: cyanosis, full ROM. Absent: clubbing, edema Comments: Status localis; R 2nd toe is erythemaous swollen, sausage shape with a maceration/shallow ulceration on the medial aspect of the toe no ascending cellulitis, lymphangitis or lymphadenopathy noted - Routine Skin Exam Present: dry, warm. Absent: rash - Routine Neurological Exam Present: alert, oriented X3, CN II-XII intact, moving all extremities, vision grossly intact, hearing grossly intact, normal speech - Routine Psychiatric Exam Present: normal affect, normal thought process, cooperative Results - Labs CBC & Chem 7: 05/15/18 05:32 05/15/18 05:32 Labs: Laboratory Results - last 24 hr 05/15/18 05/15/18 05:32 05:32 WBC 10.1 RBC 4.21 L Hgb 12.7 L Hct 36.6 L MCV 86.7 MCH 30.0 MCHC 34.6 RDW 14.5 Plt Count 232 MPV 6.8 L Neut % (Auto) 76.3 H Lymph % (Auto) 13.3 [place]ke % (Auto) 7.9 Eos % (Auto) 1.8 Baso % (Auto) 0.7 Neut # (Auto) 7.7 Lymph # (Auto) 1.3 [place] # (Auto) 0.8 Eos # (Auto) 0.2 Baso # (Auto) 0.1 WBC Differential . Differential Comment Auto diff final Sodium 140 Potassium 3.8 Chloride 104 Carbon Dioxide 25.8 Anion Gap 10 BUN 14 Creatinine 0.94 Estimated GFR 78 L Random Glucose 97 Calcium 9.1 - Imaging Foot MRI 05/09/18 15:19 CONCLUSION: 1. Diffuse soft tissue inflammatory changes of the second toe. Acute on chronic appearing destructive arthropathy at the proximal interphalangeal joint. An infectious etiology would be in the differential. If the soft tissues or joint are infected, there are signal changes of the proximal and middle phalanges consistent with osteomyelitis. 2. Severe arch collapse. 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 3. Peritendinitis and enthesopathic changes of the Achilles insertion. No tear. Foot X-Ray 05/09/18 15:21 CONCLUSION: Charcot foot with Lisfranc fracture as detailed above. Assessment and Plan - Plan 2nd toe infection suspected osteo on MR however not confirmened on path C.diff diarrhea cont vancomycin po x 2 weeks cont IV vancomycin x 4 weeks PICC OPAT case was dw Dr Johnson
[2018-05-15 12:18] VITALS: RESP 18
--- NOTE | 2018-05-15 13:55 | P.DCO ---
Post Hospital Infusion Therapy - Infusion Therapy Location of Infusion Therapy: Home Health Care IV Infusion Order - Patient Information Patient Weight: 126.4 kg - Diagnosis (1) Cellulitis of foot Code(s): L03.119 - Cellulitis of unspecified part of limb (2) Osteomyelitis Code(s): M86.9 - Osteomyelitis, unspecified - Administer Medication Vancomycin Dose: 2 grams IV Directions: q 24 hours Start Treatment: 05/17/18 Stop Treatment: 06/13/18 - Additional Information Venous Access: PICC Line Additional Instructions: [x] Peripheral flush and dressing changes per protocol [x] Implanted port and central flight line service attendant: * Implanted port: 10 ml Normal Saline followed by 5 ml Heparin 100 units/ml Heparin flush after each use and monthly to maintain. [] May leave port accessed during therapy. [] May leave peripheral site accessed for duration of therapy. [x] If patient has SOB or respiratory distress, check oxygen saturation. If less than 90% or clinical signs of respiratory distress, administer oxygen at 2 L/min. via nasal cannula and notify physician. [x] Anaphylaxis/Reaction orders: * Stop infusion. * Keep IV line open with saline flush. * Notify physician. * Monitor vital signs every 15 minutes until symptoms resolve. * Check Oxygen saturation; Oxygen at 2 L/min. via nasal cannula if less than 90% or clinical signs of respiratory distress. * Administer diphenhydramine (Benadryl) 25 mg IV STAT, (unless patient has received as pre-med). May repeat once, if necessary. * Solu-Cortef 250 mg IVP over 30-60 seconds, use 100 mg vials for each dissolution. * Epinephrine (1mg/1 ml) 0.3 mg subcutaneously or IVP now with any signs of respiratory distress. * Check with physician for new additional pre-med orders if patient is re- challenged or re-treated. [x] May remove PICC line when treatment complete, after confirming with Physician. [x] If the patient is admitted to the hospital, the ED, or transferred via [facility] , complete transfer form including medication reconciliation order sheet. Weekly Labs: BMP, CBC w/diff, Vancomycin Trough Case Management Consult: Yes Additional Information: Have labwork sent to [facility] pharmacy to follow vancomycin levels and vancomycin medication adjustment as needed. send labwork also to pcp Dr [place] for review. - Patient Information Allergies No Known Allergies Allergy (Verified 04/25/18 01:08) (2) Osteomyelitis Qualifiers: Osteomyelitis type: unspecified type Osteomyelitis location: foot Laterality : right Qualified Code(s): M86.9 - Osteomyelitis, unspecified
--- NOTE | 2018-05-15 13:57 | P.DCO ---
- Home Health Nursing Order: Medical education, Signs/symptoms of disease process, Medication education-adverse effect, Nursing assessment with vital signs, IV medication administration Instructions: see attached iv vancomycin infusion orders and labwork orders to be sent to [facility] and pcp Dr Santos. - Case Management Consult No - Certification I have seen patient Sheldon Alcantar on 05/15/18. My clinical findings support the need for the requested home health care services because: Injectable medication education/administration I certify that my clinical findings support that this patient is homebound because: Need for psychosocial assistance
[2018-05-15] MEDS ORDERED: Heparin Central Flush 100 UNIT/ML 5 ML Vial IV.FLUSH PRN (17:42)
[2018-05-16 00:52] VITALS: BP 130/68; PULSE 60; TEMP 99; O2SAT 93
[2018-05-16] MEDS: Vancomycin Inj 2,000 MG in Sodium Chlor 0.9% Inj 500 ML IV.SIG SCH (03:44)
[2018-05-16] MEDS ORDERED: Pharmacy Ordered Lab Info OTHER ONE (03:45)
[2018-05-16] MEDS: Metoprolol Tartrate 50 MG Tablet PO SCH (08:49)
[2018-05-16] MEDS: Allopurinol 300 MG Tablet PO SCH (08:49)
[2018-05-16] MEDS: Pregabalin 75 MG Capsule PO SCH (08:49)
[2018-05-16] MEDS: lamoTRIgine 25 MG TABLET PO SCH (08:49)
[2018-05-16] MEDS: Lactobacillus Acidophilus/L. Spores Tablet PO SCH ×2 (08:49→12:01)
[2018-05-16] MEDS: Sodium Chloride 0.9% 2 ML Flush BID IV.FLUSH SCH (08:50)
[2018-05-16] MEDS ORDERED: Heparin Central Flush 100 UNIT/ML 5 ML Vial IV.FLUSH SCH (09:00)
--- NOTE | 2018-05-16 09:03 | P.DS ---
<Cristina Hdz E - Last Filed: 05/16/18 08:54> Date of admission: 05/09/18 16:58 Primary care physician: David Santos MD Attending physician on discharge: Evangelista Lemus Anticipated date of discharge: 05/16/18 Brief History from admission: Pt is 77 yo with chronic bony deformities of bilateral feet and neuropathy. Says he developed a rubbing injury to medial aspect of right second toe. was placed on cipro last week about 5 or 6 days ago. Seen by Podiatry today DR Castillo and sent to ED for iv abx, mri for possible osteo. Pt given vanco/zosyn in ED and mri pending. PMH bilateral TKA appendectomy htn hyperlipidemia gout chronic bony deformities bilateral feet bilateral feet peripheral neuropathy bph sh no tob 4beers per week fh: nc DS: Diagnosis - Discharge Diagnosis (1) Osteomyelitis Status: Acute (2) Cellulitis of foot Status: Acute (3) Neuropathy Status: Chronic DS: Medications - Discharge Medications Prescriptions: vancomycin 125 mg PO QID 14 Days each vancomycin 2,000 mg IV Q24H 28 Days each DS: Summary Hospital Course: 1. Right second toe cellulitis and most likely osteomyelitis. Cellulitis extending to dorsal foot 2. Chronic bony foot deformities and peripheral neuropathy. 3. C. diff infection 4. HTN 5. BPH 6. Hyperlipidemia 7. Gout - Pt is a 77 yo male with chronic bony deformities of bilateral feet and neuropathy. Says he developed a rubbing injury to medial aspect of right second toe and was placed on Cipro about 5 or 6 days prior to admission. He was seen by Podiatry on the day of admission and Dr Castillo sent him to ED the for iv Abx and MRI for possible osteo. Pt given vanco/zosyn in ED - MRI right foot (05/09/18) 1. Diffuse soft tissue inflammatory changes of the second toe. Acute on chronic appearing destructive arthropathy at the proximal interphalangeal joint. An infectious etiology would be in the differential. If the soft tissues or joint are infected, there are signal changes of the proximal and middle phalanges consistent with osteomyelitis. 2. Severe arch collapse. 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 3. Peritendinitis and enthesopathic changes of the Achilles insertion. No tear. - Right Foot X-Ray:Charcot foot with Lisfranc fracture as detailed above. - Appreciate input from podiatry - Superficial wound culture with MSSA and MRSA - Pt underwent right 2nd digit proximal phalanx bone biopsy on 05/11/[address] Yu. - Deep culture with NGTD - Pathology is with NO acute osteomyelitis. - Zosyn stopped on 05/12 and pt was continued on vancomycin with pharmacy dosing. - Pt had diarrhea on 05/12 and stool tested positive for C. diff. Oral Vancomycin 125mg QID added to regimen for the C. diff infection. - Podiatry recommending: Continue with local wound care daily, apply Silvadene and DSD, patient to follow-up with Dr. Castillo upon discharge - Podiatry report indicated that ultimately the toe may need to be amputated as there is continued erythema and edema and because of ulceration is dislocation noted to proximal interphalangeal joint - Infectious disease was consulted for recommendations regarding antibiotics for discharge. Pt with clinical evidence and imaging indicating osteomyelitis but bone biopsy was negative for acute osteo and pt with C. diff. ID reported suspected osteo on MR however not confirmed on pathology. - ID recommending: - cont vancomycin po x 2 weeks - cont IV vancomycin x 4 weeks with weekly BMP, CBC w/diff, Vancomycin Trough. Lab work to be sent to [facility] pharmacy to follow vancomycin levels and vancomycin medication adjustment as needed. Lab work also to PCP, Dr Santos for review. - Pt had PICC line placed on 05/15/18 - [facility] has been arranged to help with dressing changes and Abx administration - Pt will need to followup with Dr. Castillo in 1 week - Pt is to followup with Dr. Santos in 1 week - Time Spent with Patient Total time spent providing and/or coordinating discharge services: Greater than 30 minutes - Quality: VTE Deep Vein Thrombosis/Pulmonary Embolism Present on Admission: No Exam Vital signs: Vital Signs 05/15/18 12:00 05/15/18 16:00 05/15/18 20:00 Temperature 98.6 F 98.1 F 97.7 F Pulse Rate 77 80 76 Respiratory Rate 18 18 18 Blood Pressure 124/61 134/67 126/61 Pulse Oximetry 95 92 L 96 05/16/18 00:00 Temperature 99 F Pulse Rate 60 Respiratory Rate 18 Blood Pressure 130/68 Pulse Oximetry 93 L Intake & Output 05/15/18 05/16/18 05/16/18 18:59 06:59 18:59 Intake Total 1800 / 1800 1240 / 1240 Balance 1800 / 1800 1240 / 1240 Weight 126.4 kg Intake: IV 520 / 520 Vancomycin Inj 2,000 MG In NS 520 / 520 Inj 500 ML @ 260 mls/hr IV.SIG Q24H LEÓN Rx#:[id number] Oral 1800 / 1800 720 / 720 Other: # Voids 3 3 Narrative: General: NAD, AAOx3 Heart: Regular Lung: CTA bilaterally Abd: +BS, soft ND/NT Ext: Right second toe swelling/redness improving, medial ulceration with dressing intact, judy foot deformities noted bilaterally Results Procedures completed during hospitalization: See above Labs on day of discharge: Labs from last 24 hours 05/16/18 03:45 Vancomycin Trough 11.7 H - Impressions ITS Impressions Foot MRI 05/09/18 15:19 CONCLUSION: 1. Diffuse soft tissue inflammatory changes of the second toe. Acute on chronic appearing destructive arthropathy at the proximal interphalangeal joint. An infectious etiology would be in the differential. If the soft tissues or joint are infected, there are signal changes of the proximal and middle phalanges consistent with osteomyelitis. 2. Severe arch collapse. 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 3. Peritendinitis and enthesopathic changes of the Achilles insertion. No tear. Foot X-Ray 05/09/18 15:21 CONCLUSION: Charcot foot with Lisfranc fracture as detailed above. <AllanAltafpatricia B - Last Filed: 05/26/18 04:32> Date of admission: 05/09/18 16:58 Primary care physician: David Santos MD DS: Summary Hospital Course: Patient examined. Assessment and plan formulated with Cristina Hdz PA-C. I agree with the above. - Time Spent with Patient Total time spent providing and/or coordinating discharge services: Results - Impressions ITS Impressions Foot MRI 05/09/18 15:19 CONCLUSION: 1. Diffuse soft tissue inflammatory changes of the second toe. Acute on chronic appearing destructive arthropathy at the proximal interphalangeal joint. An infectious etiology would be in the differential. If the soft tissues or joint are infected, there are signal changes of the proximal and middle phalanges consistent with osteomyelitis. 2. Severe arch collapse. 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 3. Peritendinitis and enthesopathic changes of the Achilles insertion. No tear. Foot X-Ray 05/09/18 15:21 CONCLUSION: Charcot foot with Lisfranc fracture as detailed above. Discharge Plan - Discharge Order Discharge Orders: Discharge Order (Routine); Ordered 05/16/18 Ordered By: Sheldon Johnson - Discharge Details Anticipated Discharge Date: 05/16/18 Discharge Comment: dc home on Wednesday 05/16 once picc placed and hhc and home iv antibiotics arranged. - Physicians Team Primary Care Provider: David Santos Attending Provider: Sheldon Johnson Other Providers: Christelle Yu DPM ; [facility] ; Jackie Tang MD
[2018-05-16] MEDS ORDERED: Vancomycin Inj 2,000 MG in Sodium Chlor 0.9% Inj 500 ML IV.SIG SCH (20:00)
[2018-05-19] MEDS ORDERED: Pharmacy Ordered Lab Info OTHER ONE (01:45)
== END 2018-05-16 12:33 | disposition home health service (06) ==
LOC: NEPC 14:15 → NEDA 16:58 → N07 19:04
PROVIDERS: ADMIT Hospitalist; ATTEND Hospitalist